=== PATIENT | male | born 1955 | race Caucasian/White ===

== ENCOUNTER → 2017-12-20 | Outpatient (CLI) | payer BC, MEDICARE ==
[~2017-12-20] MED LIST: ASPI81CH; ATOR40TA PO; ATORVASTATIN CA40 MG PO; Amaryl1 MG PO; CLOP75 PO; DOCCAL240; FENT25TP TOP; FURO40 PO; Fentanyl1 EAC1 TD; Flomax0.4 MG PO; METO25 PO; MSM1000 M1 PO; Metformin HCl1000 MG PO; Multiple Vitam1 EAC1 PO; NAMENDA XR1 EACH PO; POTCIT10; Percocet 5-3251 EACH PO; SENNA LAXATIVE PO; Zofran8 MG PO
[2017-12-20 11:35] LABS: Protein, Urine Quantitative 202.9 mg/dL (0.0-11.9)
== END | disposition home or self-care (01) ==
LOC: LAB FUT 12-17 14:15 → LAB SHORT 05:30 → OLS 05:30
PROVIDERS: Internal Medicine Nephrology
DX: N18.4 Chronic kidney disease, stage 4 (severe) (principal); D63.1 Anemia in chronic kidney disease
CPT/HCPCS: 81050; 82043; 84156

== ENCOUNTER → 2018-02-11 | Outpatient (CLI) | payer BC, MEDICARE ==
[2018-02-11 14:31] LABS: Protein, Urine Quantitative 257.4 mg/dL (0.0-11.9)
== END ==
LOC: OLS 11:47 → LAB SHORT 11:47
PROVIDERS: Internal Medicine Nephrology
DX: N18.3 Chronic kidney disease, stage 3 (moderate) (principal); R80.9 Proteinuria, unspecified; N25.81 Secondary hyperparathyroidism of renal origin; E55.9 Vitamin D deficiency, unspecified; E78.00 Pure hypercholesterolemia, unspecified; R76.9 Abnormal immunological finding in serum, unspecified; R94.5 Abnormal results of liver function studies; R94.6 Abnormal results of thyroid function studies; G60.9 Hereditary and idiopathic neuropathy, unspecified
CPT/HCPCS: 81050; 82043; 84156

== ENCOUNTER 2019-05-31 07:43 | Inpatient (IN) | payer BC, MEDICARE ==
[~2019-05-31] VITALS: Ht 170.2 cm; Wt 98.4 kg
[~2019-05-31 07:43] MED LIST changes: +CHOL10002 PO; +Coq-10100 MG PO; +EXELON1 EACH TD; +FENO48 PO; +FISH OIL 1,4001 EACH PO; +IRON150C PO; +NAMENDA XR28 MG PO; +POTA8 PO; -POTCIT10; +Prinivil5 MG PO; +TRADJENTA5 MG PO
[2019-05-31 09:45] LABS: Calcium, Ionized (POC) 1.07 mmol/L (1.10-1.46); Chloride (POC) 114 mmol/L (98-108); Creatinine (POC) 4.8 mg/dL (0.8-1.3); Glucose (ISTAT POC) 116 mg/dL (70-99); Hemoglobin (POC) 10.5 g/dL (13.5-17.5); Potassium (POC) 5.3 mmol/L (3.5-5.5); Sodium (POC) 140 mmol/L (135-148); Total CO2 (POC) 18 mmol/L (21-32)
[2019-05-31 11:48] LABS: BASOPHILS ABSOLUTE AUTO 0.03 K/mm3 (0.00-0.23); BASOPHILS PERCENT AUTO 1 % (0-2); EOSINOPHILS ABSOLUTE AUTO 0.17 K/mm3 (0.00-0.68); EOSINOPHILS PERCENT AUTO 3 % (0-6); Hematocrit 31.7 % (37.0-53.0); Hemoglobin 10.5 g/dL (13.5-17.5); IMMATURE GRAN ABSOLUTE AUTO 0.05 K/mm3 (0.00-0.10); IMMATURE GRAN PERCENT AUTO 1 % (0-1); LYMPHOCYTES ABSOLUTE AUTO 1.55 K/mm3 (0.84-5.20); LYMPHOCYTES PERCENT AUTO 24 % (21-46); MONOCYTES ABSOLUTE AUTO 0.64 K/mm3 (0.16-1.47); MONOCYTES PERCENT AUTO 10 % (4-13); Mean Corpuscular HGB 32.2 pg (26.0-34.0); Mean Corpuscular HGB Conc 33.1 g/dL (31.5-36.5); Mean Corpuscular Volume 97 fL (80-100); Mean Platelet Volume 9.8 fL (9.1-12.4); NEUTROPHILS ABSOLUTE AUTO 4.06 K/mm3 (1.96-9.15); NEUTROPHILS PERCENT AUTO 63 % (41-73); Platelet Count 225 K/mm3 (150-400); RDW Coefficient Variation 12.3 % (11.7-14.2); RDW Standard Deviation 43.9 fL (35.1-46.3); Red Blood Cell Count 3.26 M/mm3 (4.30-5.90)
[2019-05-31 12:04] LABS: Albumin, Blood 3.4 g/dL (3.4-5.0); Anion Gap 9 mmol/L (6-16); Blood Urea Nitrogen 84 mg/dL (8-24); Bun/Creatinine Ratio 20.5 (12.0-20.0); CO2, Blood 19 mmol/L (21-32); Calcium, Blood 7.7 mg/dL (8.5-10.1); Chloride, Blood 115 mmol/L (98-108); Creatinine, Blood 4.09 mg/dL (0.60-1.20); Glomerular Filtration Rate 16 (60-); Glucose, Blood 116 mg/dL (70-99); Phosphorus, Blood 4.2 mg/dL (2.5-4.9); Potassium, Blood 5.6 mmol/L (3.5-5.5); Sodium, Blood 143 mmol/L (136-145)
[2019-05-31] MEDS ORDERED: SODBIC650 PO (13:01)
[2019-05-31 13:18] LABS: Phosphorus, Blood 4.3 mg/dL (2.5-4.9)
--- NOTE | 2019-05-31 17:43 | NUR ---
SHIFT SUMMARY: PT ARRIVED FROM THE ER THIS AFTERNOON WITH AND DAUGHTER AT BEDSIDE. HE AMBULATED FROM STRETCHER TO BED WITH STAND BY ASSIST. PT IS A/O X 4 AND ANSWERS QUESTIONS APPROPRIATELY BUT THE FAMILY IS ASKING TO BE INVOLVED IN ALL CARE DECISIONS PT HAS BEEN DX WITH [facility]. HOSPITALIST WAS NOTIFIED OF THIS REQUEST. POWER GLIDE WAS PLACED BY RESOURCE NURSE IN [facility]. PT WAS ASSISTED TO TAKE A SHOWER AT HIS REQUEST. THIS NURSE SPOKE WITH DR CALLE ABOUT THE TIME FOR THE PERMACATH PLACEMENT TOMORROW AND WAS UPDATED ON DR BURKETT BEING RESPIRATORY EQUIPMENT ASSISTANT TOMORROW, DR CALLE PLACED THE PT ON NPO DIET OF MIDNIGHT TONIGHT SO THE PROCEDURE CAN BE COMPLETED TOMORROW. DR ABDUL HAS ALSO BEEN CONSULTED FOR RENAL ISSUES. PT IS RESTING IN BED AND VERBALIZES AN UNDERSTANDING OF THE USE OF HIS CALL LIGHT.
--- NOTE | 2019-06-01 02:00 | NUR ---
RAMESH THE [employer]IV[employer] SYSTEM MAINTAINER ASSESSED PT'S FISTULA SITE. SHE STATED FISTULA APPEARS TO BE IN GOOD CONDITION AND RECOMMENDED THAT PT'S ACCESS TO PT'S FISTULA BE ATTEMPTED AGAIN IN AM.
[2019-06-01 04:12] LABS: BASOPHILS ABSOLUTE AUTO 0.03 K/mm3 (0.00-0.23); BASOPHILS PERCENT AUTO 1 % (0-2); EOSINOPHILS ABSOLUTE AUTO 0.21 K/mm3 (0.00-0.68); EOSINOPHILS PERCENT AUTO 4 % (0-6); Hematocrit 28.6 % (37.0-53.0); Hemoglobin 9.6 g/dL (13.5-17.5); IMMATURE GRAN ABSOLUTE AUTO 0.03 K/mm3 (0.00-0.10); IMMATURE GRAN PERCENT AUTO 1 % (0-1); LYMPHOCYTES ABSOLUTE AUTO 1.82 K/mm3 (0.84-5.20); LYMPHOCYTES PERCENT AUTO 30 % (21-46); MONOCYTES PERCENT AUTO 10 % (4-13); Mean Corpuscular HGB 33.2 pg (26.0-34.0); Mean Corpuscular HGB Conc 33.6 g/dL (31.5-36.5); Mean Corpuscular Volume 99 fL (80-100); Mean Platelet Volume 9.7 fL (9.1-12.4); NEUTROPHILS PERCENT AUTO 55 % (41-73); Platelet Count 211 K/mm3 (150-400); RDW Coefficient Variation 12.3 % (11.7-14.2); RDW Standard Deviation 44.8 fL (35.1-46.3); Red Blood Cell Count 2.89 M/mm3 (4.30-5.90); White Blood Cell Count 5.99 K/mm3 (4.00-11.30)
[2019-06-01 04:28] LABS: Albumin, Blood 3.1 g/dL (3.4-5.0); Anion Gap 8 mmol/L (6-16); Blood Urea Nitrogen 79 mg/dL (8-24); Bun/Creatinine Ratio 19.7 (12.0-20.0); CO2, Blood 21 mmol/L (21-32); Calcium, Blood 7.6 mg/dL (8.5-10.1); Chloride, Blood 115 mmol/L (98-108); Creatinine, Blood 4.01 mg/dL (0.60-1.20); Glomerular Filtration Rate 16 (60-); Glucose, Blood 108 mg/dL (70-99); Phosphorus, Blood 4.6 mg/dL (2.5-4.9); Potassium, Blood 5.1 mmol/L (3.5-5.5); Sodium, Blood 144 mmol/L (136-145)
--- NOTE | 2019-06-01 04:56 | NUR ---
SHIFT SUMMARY PT HAD NO COMPLAINTS OR ISSUES NOTED THIS SHIFT PT HAS SLEPT WELL T/O SHIFT WITH HIS CPAP. PT IS CURRENTLY SLEEPING IN NO DISTRESS. CALL LIGHT IN REACH.
--- NOTE | 2019-06-01 08:38 | NUR ---
pt is scheduled to have a permacath placed this morning and has been NPO since midnight. per dr Fine morning meds will be held until after the procedure.
--- NOTE | 2019-06-01 14:20 | NUR ---
PT WAS TRANSPORTED TO RECEIVE HIS PERMACATH, AND DAUGHTER ACCOMPANIED HIM.
--- NOTE | 2019-06-01 17:17 | NUR ---
SHIFT SUMMARY: PT WAS A/O X 4 THIS SHIFT WITH NO C/O PAIN. PT WAS TRANSPORTED FOR PERMACATH PLACEMENT AND RETURNED WITH A PERMACATH TO [facility]. DR ABDUL WAS NOTIFIED AND STATED PT WAS OK TO BE DIALYZED TODAY OT TOMORROW. DIALYSIS NURSE WAS NOTIFIED AND SAID THE PT WOULD BE ON THE SCHEDULE FOR TOMORROW MORNING AND PT AND FAMILY WERE NOTIFIED OF THIS. PT IS RESTING IN BED WITH HOB ELEVATED PER DR DORSEY. PT IS NOW ABLE TO EAT AND TRAY WAS ORDERED AND DAILY MEDS GIVEN PER DR CALLE. FAMILY REMAINS AT BEDSIDE WITH PT AND THEY CALL FOR HELP WHEN NEEDED.
--- NOTE | 2019-06-01 20:02 | NUR ---
Patients surgical site from permacath placement found to be bleeding excesively. All bloody dressings were removed and pressure was applied at incision site with sterile guaze until bleeding had stopped, approximately 10 minutes. Steri strips were reapplied over incisiom along with sterile guaze and draped with a clear tegaderm and compression tape was then applied. No other bleed has been noted since dressing was changed. Will continue to monitor for changes.
--- NOTE | 2019-06-02 04:29 | NUR ---
SHIFT SUMMARY PT HAD SOME ISSUE RELATED TO CONTINUED BLEEDING AT [facility] SITE. DR BUSTAMANTE CALLED AND HE INSTRUCTED ON BEST COUSE TO CONTROL BLEEDING. PT BLEEDING CONTROLLED AND NO OTHER ISSUES NOTED AT SITE. PT HAD INCREASED DISCOMFORT AND ADDITIONAL PAIN MED WAS ORDERED BY DR DIAL. PT HAS SLEPT WELL WITH CPAP T/O NIGHT. PT CURRENTLY SLEEPING AND BREATHING EASY. CALL LIGHT IN REACH.
[2019-06-02 04:52] LABS: Hematocrit 28.7 % (37.0-53.0); Hemoglobin 9.5 g/dL (13.5-17.5); Mean Corpuscular HGB 32.9 pg (26.0-34.0); Mean Corpuscular HGB Conc 33.1 g/dL (31.5-36.5); Mean Corpuscular Volume 99 fL (80-100); Mean Platelet Volume 10.1 fL (9.1-12.4); Platelet Count 210 K/mm3 (150-400); RDW Coefficient Variation 12.3 % (11.7-14.2); RDW Standard Deviation 45.1 fL (35.1-46.3); Red Blood Cell Count 2.89 M/mm3 (4.30-5.90); White Blood Cell Count 5.98 K/mm3 (4.00-11.30)
[2019-06-02 05:12] LABS: Albumin, Blood 3.1 g/dL (3.4-5.0); Anion Gap 10 mmol/L (6-16); Blood Urea Nitrogen 75 mg/dL (8-24); Bun/Creatinine Ratio 18.9 (12.0-20.0); CO2, Blood 18 mmol/L (21-32); Calcium, Blood 7.8 mg/dL (8.5-10.1); Chloride, Blood 116 mmol/L (98-108); Creatinine, Blood 3.96 mg/dL (0.60-1.20); Glomerular Filtration Rate 16 (60-); Glucose, Blood 87 mg/dL (70-99); Magnesium, Blood 1.9 mg/dL (1.6-2.4); Phosphorus, Blood 4.2 mg/dL (2.5-4.9); Potassium, Blood 5.1 mmol/L (3.5-5.5); Sodium, Blood 144 mmol/L (136-145)
--- NOTE | 2019-06-02 06:29 | NUR ---
PER DR ABDUL PT NEEDS TO MAKE A OUTPATIENT DIALYSIS APPOINTMENT. GOAL IS TO AVOID HAVING TO GO THROUGH ER FOR DIALYSIS.
--- NOTE | 2019-06-02 10:21 | NUR ---
PT TRANSFERED TO DIALYSSIS AT THIS TIME, THE PT IS A/OX3, APPEARS TO BE BREATHING EASILY ON RA, FAMILY IS WITH THE PT
[2019-06-02] MEDS ORDERED: ACET325 PO (11:35)
[2019-06-02] MEDS ORDERED: MELA3 PO (11:36)
[2019-06-02] MEDS ORDERED: ONDA4ODT MM (11:38)
--- NOTE | 2019-06-02 13:54 | NUR ---
PT DISCHARGED THE PT CAME BACK FROM DIALYSIS, A/OX3, APPEARED TO BE BREATHING EASILY, THE PT VERBALIZED UNDERSTANDING OF THE DC INSTRUCTIONS, THE PTS PRESCIPTIONS WERE FAXED TO [facility] REQUESTED, FOLLOW UP APPOINTMENTS WITH AND DIALYSIS WERE MADE FOR THE PT AND ADDED TO THE DC INSTRUCTIONS, THE PT WAS TRANSFERED VIA WHEELCHAIR ACCOMPANIED BY VOLUNTEER AND FAMILY
[2019-06-03 05:08] LABS: HBSAG SCREEN Negative (Negative); HEP A AB, IGM Negative (Negative); HEP B CORE AB, IGM Negative (Negative); HEP C VIRUS AB <0.1 (0.0-0.9)
== END 2019-06-02 13:31 | disposition home or self-care (01) | DRG 314 ==
LOC: ER 07:43 → ERHOLD 10:54 → MEDS 10:54
PROVIDERS: Internal Medicine Nephrology; Physician Assistant; ADMIT Family Medicine
PROC: 0JH63XZ Insertion of Tunneled Vascular Access Device into Chest Subcutaneous Tissue and Fascia, Percutaneous Approach (ICD-10-PCS; principal; 2019-06-01)
PROC: 02HV33Z Insertion of Infusion Device into Superior Vena Cava, Percutaneous Approach (ICD-10-PCS; 2019-06-01)
PROC: B5181ZA Fluoroscopy of Superior Vena Cava using Low Osmolar Contrast, Guidance (ICD-10-PCS; 2019-06-01)
DX: T82.590A Other mechanical complication of surgically created arteriovenous fistula, initial encounter (principal); N18.6 End stage renal disease; N25.81 Secondary hyperparathyroidism of renal origin; N17.9 Acute kidney failure, unspecified; E87.2 Acidosis; Z79.82 Long term (current) use of aspirin; E78.5 Hyperlipidemia, unspecified; G47.33 Obstructive sleep apnea (adult) (pediatric); E11.22 Type 2 diabetes mellitus with diabetic chronic kidney disease; Z79.02 Long term (current) use of antithrombotics/antiplatelets; E83.51 Hypocalcemia; Z99.2 Dependence on renal dialysis; E11.21 Type 2 diabetes mellitus with diabetic nephropathy; E87.70 Fluid overload, unspecified; D63.1 Anemia in chronic kidney disease; I25.10 Atherosclerotic heart disease of native coronary artery without angina pectoris; Z95.5 Presence of coronary angioplasty implant and graft
CPT/HCPCS: 36415; 36558; 76937; 80047; 80069; 80074; 82947; 83036; 83735; 84100; 85014; 85018; 85025; 85027; 86317; 93005; 93010; 93931; 94762; 99152; 99153; 99285-25; A9270; C1750; C1751; C1769; J1644; J2250; J3010; J7040

== ENCOUNTER → 2020-04-26 | Outpatient (CLI) | payer BC, MEDICARE ==
[~2020-04-26] MED LIST changes: +ACET325 PO; +MELA3 PO; +ONDA4ODT MM; +SODBIC650 PO
== END | disposition home or self-care (01) ==
LOC: LAB SHORT 13:04 → LAB 13:04
DX: N18.6 End stage renal disease (principal)

== ENCOUNTER 2020-06-10 06:25 | Observation (INO) | payer BC, MEDICARE ==
[~2020-06-10] VITALS: Ht 170.2 cm; Wt 100.8 kg
--- NOTE | 2020-06-10 09:45 | NUR ---
PT WAS HAVING ECHO AND WAS FOUND TO BE IN 2 DEGREE AND 3 DEGREE HB 35-50'S; BROUGHT BACK TO RECOVERY ROOM AND AWAITING ICU BED. PT IS ALERT AND ORIENTED, ASYMPTOMATIC WITH RHYTHM. PT DENIES CHEST PAIN/PRESSURE, SOB, NAUSEA, LIGHTHEADED OR DIZZINESS. MONITOR 2 DEGREE HB TYPE II AND 3 DEGREE HB 35-50'S, B/P 156/69, AFEBRILE, SPO2 100% RA. 20 GA IV STARTED R AC ON 1ST ATTEMPT, PT TOLERATED WELL.
--- NOTE | 2020-06-10 10:05 | NUR ---
PT TRANSFERRED TO ICU 16 VIA [place]. PT GOING BETWEEN 2 DEGREE HB TYPE II AND 3 DEGREE HB 35-50'S-REMAINS ASYMPTOMATIC. REPORT GIVEN TO LUIS AGUERO RN; ALL QUESTIONS ANSWERED.
[2020-06-10 10:46] LABS: BASOPHILS ABSOLUTE AUTO 0.05 K/mm3 (0.00-0.23); BASOPHILS PERCENT AUTO 1 % (0-2); EOSINOPHILS PERCENT AUTO 4 % (0-6); Hemoglobin 10.9 g/dL (13.5-17.5); IMMATURE GRAN PERCENT AUTO 1 % (0-1); LYMPHOCYTES ABSOLUTE AUTO 2.12 K/mm3 (0.84-5.20); LYMPHOCYTES PERCENT AUTO 28 % (21-46); MONOCYTES ABSOLUTE AUTO 0.67 K/mm3 (0.16-1.47); MONOCYTES PERCENT AUTO 9 % (4-13); Mean Corpuscular HGB 33.4 pg (26.0-34.0); Mean Corpuscular HGB Conc 34.1 g/dL (31.5-36.5); Mean Corpuscular Volume 98 fL (80-100); Mean Platelet Volume 9.7 fL (9.1-12.4); NEUTROPHILS ABSOLUTE AUTO 4.36 K/mm3 (1.96-9.15); NEUTROPHILS PERCENT AUTO 57 % (41-73); Platelet Count 232 K/mm3 (150-400); RDW Coefficient Variation 12.4 % (11.7-14.2); RDW Standard Deviation 44.4 fL (35.1-46.3); Red Blood Cell Count 3.26 M/mm3 (4.30-5.90)
[2020-06-10] MEDS ORDERED: CALCIUM ACETAT667 MG PO (11:03)
[2020-06-10] MEDS ORDERED: Calcium Acetat667 MG PO (11:04)
[2020-06-10] MEDS ORDERED: MIDO5 (11:05)
[2020-06-10 11:06] LABS: Albumin, Blood 3.5 g/dL (3.4-5.0); Bilirubin, Total 0.4 mg/dL (0.1-1.0); Bun/Creatinine Ratio 11.7 (12.0-20.0); Calcium, Blood 9.3 mg/dL (8.5-10.1); Creatinine, Blood 6.82 mg/dL (0.60-1.20); Globulin, Blood 3.4 g/dL (2.2-4.0); International Normalized Ratio 1.04; Potassium, Blood 4.4 mmol/L (3.5-5.5); Prothrombin Time Results 11.1 Sec (9.7-11.5); Total Protein, Blood 6.9 g/dL (6.4-8.2)
[2020-06-10] MEDS ORDERED: CO Q10100 MG PO (11:06)
[2020-06-10] MEDS ORDERED: DUOFER 28 MG TA28 MG PO (11:08)
[2020-06-10] MEDS ORDERED: Ginseng250 MG PO (11:08)
[2020-06-10] MEDS ORDERED: DOC250 PO (11:11)
--- NOTE | 2020-06-10 11:56 | NUR ---
1015-RECEIVED THIS PATIENT FROM THE [facility]. CAME ORIGINALLY FOR AN ECHO AND WAS DISCOVERED THAT PT IS ON MOBITZ TYPE II BLOCK. PT IS AFERBILE. DENIES PAIN. PT HAS A PERETONEAL DIALYSIS CATHETER AND AV FISTULA TO HIS SABA. PT STATED HE DOES PD AT HOME EVERY EVENING AND HD ON OCCASSION WHEN PD FAILS. PT DENIES OF SHORTNESS OF BREATH, DIZZINESS, OR FAINTING. 1158-PACER PADS PLACED ORDERED. AWAITING FOR PACEMAKER PLACEMENT.
--- NOTE | 2020-06-10 14:06 | NUR ---
1230-DR. WICK WAS NOTIFIED REGARDING PT'S ELEVATED BLOOD PRESSURE. SHE STATED TO CONTINUE MONITORING AND CALL AFTER AN HOUR. 1405-DR. WICK WAS NOTIFIED AGAIN REGARDING PT'S STILL ELEVATED BLOOD PRESSURE. ORDERS RECEIVED.
--- NOTE | 2020-06-10 14:41 | NUR ---
PT WAS TAKEN TO THE STUDENT TRUCK DRIVER AT THIS TIME.
--- NOTE | 2020-06-10 16:50 | NUR ---
PT CAME BACK FROM THE PATENT ENGINEER. PT HAD A DUAL CHAMBER PACEMAKER PLACED TO HIS LEFT UPPER CHEST. NO BLEEDING NOTED. ARM SLING PLACED ORDERED. DENIES PAIN AT THIS TIME. AFEBRILE. NO BLEEDING NOTED. INSTRUCTED PATIENT ON PRECAUTIONERY MEASURES POST PACEMAKER PLACEMENT. PT IS ALERT AND ORIENTED.
--- NOTE | 2020-06-10 18:25 | NUR ---
POST DUAL CHAMBER PACEMAKER PLACEMENT. PT IS AFEBRILE. DENIES PAIN AT THIS TIME. NO BLEEDING NOTED TO PACER SITE.
--- NOTE | 2020-06-10 20:00 | NUR ---
ASSUMED CARE OF PT AT 1915. REPORT RECEIVED AT BEDSIDE. PT PRESENTS IN BED. ALERT AND ORIENTED. PLEASANT AND COOPERATIVE WITH CARE AND ASSESSMENT. PT HAS LEFT ARM IN SLING. PRESSURE DRESSING OVER PACER SITE UPPER LEFT CHEST. TEACHING REINFORCE CONCERNING RESTRICTION S/P PACER. OCCASSIONAL PVC NOTED WITHIN PACED RHYTHM. OCCASSIONAL ATRIAL PACE. NO COMPLAINTS VOICED BY PT.
--- NOTE | 2020-06-10 20:02 | NUR ---
PATIENT AWAKE, ALERT AND ORIENTED. SOME SORENESS REPORTED AT LEFT CHEST DUE TO PACEMAKER PLACEMENT TODAY. OVERNIGHT CCPD SET UP PRIMED AND PROGRAMMED PER DR ABDUL'S ORDER. PATEINT AESEPTICALLY COMNNECTED WHEN PRIME COMPLETE. PATIENT DRY SOR ID BYPASS REQUIRED. FILL #1 TOLERATED WITHOUT COMPLAINT. EXIT SITE CARE DONE AND NEW STERILE DRESSSING APPLIED WITH 2 STRAIN RELIEFS. ICU STAFF AWARE OF OVERNIGHT THERAPY IN PROGRESS.
--- NOTE | 2020-06-11 01:00 | NUR ---
HAVE MEDICATED PT WITH ONE NORCO 5/325 FOR PACER SITE DISCOMFORT. PT STATES THAT PAIN IS ONLY WITH MOVEMENT. NO FURTHER COMPLAINTS. PT IN PROCESS OF PERITONEAL DIALYSIS. PT TOLERATING THIS VERY WELL. WILL CONTINUE TO MONITOR.
[2020-06-11 03:26] LABS: BASOPHILS ABSOLUTE AUTO 0.04 K/mm3 (0.00-0.23); BASOPHILS PERCENT AUTO 1 % (0-2); EOSINOPHILS ABSOLUTE AUTO 0.26 K/mm3 (0.00-0.68); EOSINOPHILS PERCENT AUTO 3 % (0-6); Hematocrit 28.5 % (37.0-53.0); Hemoglobin 9.8 g/dL (13.5-17.5); IMMATURE GRAN ABSOLUTE AUTO 0.05 K/mm3 (0.00-0.10); IMMATURE GRAN PERCENT AUTO 1 % (0-1); LYMPHOCYTES ABSOLUTE AUTO 1.85 K/mm3 (0.84-5.20); LYMPHOCYTES PERCENT AUTO 23 % (21-46); MONOCYTES ABSOLUTE AUTO 0.73 K/mm3 (0.16-1.47); MONOCYTES PERCENT AUTO 9 % (4-13); Mean Corpuscular HGB 33.7 pg (26.0-34.0); Mean Corpuscular HGB Conc 34.4 g/dL (31.5-36.5); Mean Corpuscular Volume 98 fL (80-100); Mean Platelet Volume 9.9 fL (9.1-12.4); NEUTROPHILS ABSOLUTE AUTO 5.02 K/mm3 (1.96-9.15); NEUTROPHILS PERCENT AUTO 63 % (41-73); Platelet Count 215 K/mm3 (150-400); RDW Coefficient Variation 12.5 % (11.7-14.2); RDW Standard Deviation 44.8 fL (35.1-46.3); Red Blood Cell Count 2.91 M/mm3 (4.30-5.90); White Blood Cell Count 7.95 K/mm3 (4.00-11.30)
[2020-06-11 03:43] LABS: Anion Gap 9 mmol/L (6-16); Blood Urea Nitrogen 76 mg/dL (8-24); Bun/Creatinine Ratio 11.5 (12.0-20.0); CO2, Blood 26 mmol/L (21-32); Calcium, Blood 8.5 mg/dL (8.5-10.1); Chloride, Blood 106 mmol/L (98-108); Creatinine, Blood 6.59 mg/dL (0.60-1.20); Glomerular Filtration Rate 9 (60-); Glucose, Blood 252 mg/dL (70-99); Magnesium, Blood 2.1 mg/dL (1.6-2.4); Phosphorus, Blood 4.3 mg/dL (2.5-4.9); Potassium, Blood 3.8 mmol/L (3.5-5.5); Sodium, Blood 141 mmol/L (136-145)
--- NOTE | 2020-06-11 06:35 | NUR ---
PT HAS BEEN ABLE TO REST THROUGH THE NIGHT WITHOUT COMPLAINTS. DID MEDICATE ONCE NEAR MIDNIGHT FOR SITE PAIN FROM PACER PLACEMENT. PT ABLE TO REST. TEACHING DONE ON PRECAUTIONS CONCERNING NEW PACER PLACEMENT. COMPLIANT WITH KEEPING LEFT ARM IN SLING. PT VOICES UNDERSTANDING WITH TEACHING. AM EKG REVEALS GOOD PACING. WILL CONTINUE TO MONITOR PT, AND WILL REPORT OFF TO ONCOMING RN.
--- NOTE | 2020-06-11 09:22 | NUR ---
CARE ASSUMED ASSESSMENT COMPLETED, PT ALERT AND ORIENTED, FORGETFUL AT TIMES, APPROPRIATE AND COOPERATIVE. VSS, HR 70'S-80'S PACED WITH OCCASIONAL PVC'S. PT DENIES CP/PRESSURE, PALPITATIONS, DIZZINESS, SOB, NAUSEA. REPORTS L CHEST SORENESS WITH PALPATION, NO OTHER C/O PAIN. LUE IN SLING PER POST PACER PRECAUTIONS. AT BEDSIDE, PT ATE BREAKFAST AND TOOK PO MEDS WITHOUT DIFFICULTY. ANCEF INFUSING PER ORDERS. DR. DENIS IN TO ASSESS, PACER DRESSING CHANGED, SITE WNL, STERI STRIPS INTACT. DR. WICK IN TO ASSESS AND WRITE DC ORDERS. PT TO XRAY.
[2020-06-11] MEDS ORDERED: HYDR1TAB94 PO (10:11)
--- NOTE | 2020-06-11 11:11 | NUR ---
DIALYSIS-PD PT AWAKE AND ALERT. WITH HIM. DC'D PT FROM PD MACHINE PER PROTOCAL. ID [id number] ML, UF [id number] ML. SITE CLEAR. FLUID CLEAR.
--- NOTE | 2020-06-11 11:13 | NUR ---
DISCHARGE DR. WICK HAS REVIEWED CXR RESULTS, STATES OK FOR DC. PT GIVEN DISCHARGE AND F/U INSTRUCTIONS, PT AND VERBALIZE UNDERSTANDING. IV DC'D WITH TIP INTACT, PRESSURE DRESSING APPLIED. PT ASSISTED TO DRESS BY , SLING REMAINS ON L ARM, DRESSING TO L CHEST WALL CDI. PT DC AT 1055 WITH WITH DC AND F/U INSTRUCTIONS, PACER INFO, WRITTEN RX, AND BELONGINGS. VSS, ASSISTED TO CAR VIA WC BY STAFF, GAIT STEADY FOR TRANSFERS. PT DC'D WITHOUT C/O.
== END 2020-06-11 10:55 | disposition home or self-care (01) ==
LOC: ECHO 06:25 → ICUW 09:05
PROVIDERS: Internal Medicine Nephrology; ADMIT Internal Medicine Cardiovascular Disease
DX: I44.1 Atrioventricular block, second degree (principal); I25.2 Old myocardial infarction; I25.10 Atherosclerotic heart disease of native coronary artery without angina pectoris; E78.5 Hyperlipidemia, unspecified; G47.33 Obstructive sleep apnea (adult) (pediatric); G30.9 Alzheimer's disease, unspecified; F02.80 Dementia in other diseases classified elsewhere, unspecified severity, without behavioral disturbance, psychotic disturbance, mood disturbance, and anxiety; E66.9 Obesity, unspecified; E11.22 Type 2 diabetes mellitus with diabetic chronic kidney disease; I12.0 Hypertensive chronic kidney disease with stage 5 chronic kidney disease or end stage renal disease; N18.6 End stage renal disease; Z99.2 Dependence on renal dialysis; Z20.828 Contact with and (suspected) exposure to other viral communicable diseases; Z95.5 Presence of coronary angioplasty implant and graft; Z88.8 Allergy status to other drugs, medicaments and biological substances; Z79.82 Long term (current) use of aspirin; Z79.899 Other long term (current) drug therapy; D63.1 Anemia in chronic kidney disease
CPT/HCPCS: 33208; 36415; 71045; 71046; 76937; 80053; 80069; 82947; 83520; 83735; 84443; 84484; 85025; 85610; 85730; 93005; 93010; 93306; 96365; 96376; 99152; 99153; A9270-GY; C1785; C1894; C1898; G0257; G0378; J0690; J1644; J2250; J3010; J7040; U0002

== ENCOUNTER 2021-05-23 14:16 | Inpatient (IN) | payer BC, MEDICARE ==
[~2021-05-23] VITALS: Ht 170.2 cm; Wt 83.9 kg
[~2021-05-23 14:16] MED LIST changes: -ASPI81CH; +Aspir 8181 MG PO; +CALCIUM ACETAT667 MG PO; -CHOL10002 PO; +CO Q10100 MG PO; +Calcium Acetat667 MG PO; +DOC250 PO; +DUOFER 28 MG TA28 MG PO; +Ginseng250 MG PO; +HYDR1TAB94 PO; +MIDO5 PO; +VITAMIN D31000 UNI1 PO
[2021-05-23] MEDS ORDERED: MIDODRINE HCL10 M4 PO (14:20)
[2021-05-23] MEDS ORDERED: BASAGLAR K100 UNIT/3 SC (14:22)
[2021-05-23] MEDS ORDERED: FENOFIBRATE48 MG PO (14:22)
[2021-05-23] MEDS ORDERED: FURO80 PO (14:22)
[2021-05-23] MEDS ORDERED: MEMANTINE HCL E28 MG PO (14:22)
[2021-05-23] MEDS ORDERED: ATOR40TA PO (14:23)
[2021-05-23 15:28] LABS: BASOPHILS ABSOLUTE AUTO 0.05 K/mm3 (0.00-0.23); BASOPHILS PERCENT AUTO 1 % (0-2); EOSINOPHILS ABSOLUTE AUTO 0.06 K/mm3 (0.00-0.68); EOSINOPHILS PERCENT AUTO 1 % (0-6); Hematocrit 35.9 % (37.0-53.0); Hemoglobin 11.8 g/dL (13.5-17.5); IMMATURE GRAN ABSOLUTE AUTO 0.44 K/mm3 (0.00-0.10); IMMATURE GRAN PERCENT AUTO 5 % (0-1); LYMPHOCYTES ABSOLUTE AUTO 0.58 K/mm3 (0.84-5.20); LYMPHOCYTES PERCENT AUTO 6 % (21-46); MONOCYTES PERCENT AUTO 4 % (4-13); Mean Corpuscular HGB 32.1 pg (26.0-34.0); Mean Corpuscular HGB Conc 32.9 g/dL (31.5-36.5); Mean Corpuscular Volume 98 fL (80-100); Mean Platelet Volume 10.2 fL (9.1-12.4); NEUTROPHILS ABSOLUTE AUTO 7.68 K/mm3 (1.96-9.15); NEUTROPHILS PERCENT AUTO 83 % (41-73); NRBC ABSOLUTE 0.03 K/mm3 (0.00-0.02); NRBC Auto 0.3 /100 WBC (0.0-0.2); Platelet Count 441 K/mm3 (150-400); RDW Coefficient Variation 12.2 % (11.7-14.2); Red Blood Cell Count 3.68 M/mm3 (4.30-5.90); White Blood Cell Count 9.21 K/mm3 (4.00-11.30)
[2021-05-23 15:51] LABS: Albumin, Blood 2.3 g/dL (3.4-5.0); Albumin/Globulin Ratio 0.4 (0.8-1.8); Bilirubin, Total 0.5 mg/dL (0.1-1.0); Bun/Creatinine Ratio 11.7 (12.0-20.0); Calcium, Blood 7.4 mg/dL (8.5-10.1); Creatinine, Blood 9.01 mg/dL (0.60-1.20); Globulin, Blood 5.5 g/dL (2.2-4.0); Potassium, Blood 3.9 mmol/L (3.5-5.5); Total Protein, Blood 7.8 g/dL (6.4-8.2)
[2021-05-23 21:33] LABS: Glucose, Blood 526 mg/dL (70-99)
--- NOTE | 2021-05-24 02:45 | NUR ---
DIALYSIS-PD CALLED AT 0013 TO CONNECT PT TO PD. PT SITTING UP IN BED, VERY CONFUSED. I ASKED HIM TO HELP PULL HIS PD CATH OUT OF HIS SWEAT PANTS. HE TUCKED IT IN FURTHER. SETUP HIS MACHINE AND TOOK IT UPSTAIRS TO HIS ROOM. UNABLE TO GET IT TO PRIME PROBABLY. TRIED 3 X. EXCHANGED THE TUBING FOR NEW TUBING. PROBLEM SOLVED. CONNECTED THE PT TO THE TX AT 0230. HE IMMEDIATELY DECIDED HE NEEDED TO GO TO THE BR. INSTRUCTED FINE ARTS MODEL TO WATCH HIS TUBING. USED DIANEAL 1.5 % DEXTROSE, PT RUNNING VERY HIGH BLOOD SUGARS. 4 EXCHANGES @ 2200ML, LAST FILL 100 ML. 9.5 HRS AT 1:54 HR DWELLS. DRESSING CHANGED PER PROTOCAL SITE CLEAR.
[2021-05-24 05:35] LABS: Hematocrit 35.6 % (37.0-53.0); Hemoglobin 11.9 g/dL (13.5-17.5); Mean Corpuscular HGB 32.3 pg (26.0-34.0); Mean Corpuscular HGB Conc 33.4 g/dL (31.5-36.5); Mean Corpuscular Volume 97 fL (80-100); Mean Platelet Volume 9.8 fL (9.1-12.4); NRBC ABSOLUTE 0.05 K/mm3 (0.00-0.02); NRBC Auto 0.4 /100 WBC (0.0-0.2); Platelet Count 338 K/mm3 (150-400); RDW Coefficient Variation 12.1 % (11.7-14.2); RDW Standard Deviation 43.5 fL (35.1-46.3); Red Blood Cell Count 3.68 M/mm3 (4.30-5.90); White Blood Cell Count 11.79 K/mm3 (4.00-11.30)
[2021-05-24 06:00] LABS: Magnesium, Blood 2.2 mg/dL (1.6-2.4)
[2021-05-24 06:04] LABS: Albumin, Blood 2.3 g/dL (3.4-5.0); Albumin/Globulin Ratio 0.5 (0.8-1.8); Bilirubin, Total 0.5 mg/dL (0.1-1.0); Calcium, Blood 6.7 mg/dL (8.5-10.1); Globulin, Blood 5.1 g/dL (2.2-4.0); Phosphorus, Blood 3.7 mg/dL (2.5-4.9); Potassium, Blood 2.9 mmol/L (3.5-5.5); Total Protein, Blood 7.4 g/dL (6.4-8.2)
[2021-05-24 06:05] LABS: Creatinine, Blood 8.86 mg/dL (0.60-1.20)
[2021-05-24 06:16] LABS: BAND PERCENT MAN 2 % (0-8); BASOPHILS PERCENT MAN 0 % (0-2); EOSINOPHILS ABSOLUTE MAN 0.47 K/mm3 (0.00-0.68); EOSINOPHILS PERCENT MAN 4 % (0-6); LYMPHOCYTES ABSOLUTE MAN 0.47 K/mm3 (0.84-5.20); LYMPHOCYTES PERCENT MAN 4 % (21-46); MONOCYTES ABSOLUTE MAN 0.58 K/mm3 (0.16-1.47); MONOCYTES PERCENT MAN 5 % (4-13); MYELOCYTE ABSOLUTE MAN 0.23 K/mm3 (0.00-0.00); MYELOCYTE PERCENT MAN 2 % (0-0); NEUTROPHILS ABSOLUTE MAN 10.02 K/mm3 (1.96-9.15); SEG NEUTROPHILS PERCENT MAN 83 % (41-73); TOTAL CELLS COUNTED 100
--- NOTE | 2021-05-24 16:21 | NUR ---
PATIENT TRANSFERED TO ROOM 406, REPORT GIVEN TO KAVITHA VEE.
--- NOTE | 2021-05-24 20:24 | NUR ---
PATIENT AWAKE // ALERT BUT CONFUSED. RESTING IN BED IN NO APPARENT DISTRESS. CYCLE SET UP, STRUNG, AND PRIMED PER DR ABDUL'S ORDER. PT AESEPTICALLY CONNECTED WHEN PRIME COMPLETE AND OVERNIGHT CCPD STARTED. EXIT SITE CARE DONE. SITE WNL. NEW STERILE DRESSING APPLIED WITH 3 STRAIN RELIEFS AND MEDFIX COVER FOR SECURITY. MED FLOOR STAFF AWARE OF OVERNIGHT THERAPY IN PROGRESS.
[2021-05-25 05:18] LABS: BASOPHILS ABSOLUTE AUTO 0.04 K/mm3 (0.00-0.23); BASOPHILS PERCENT AUTO 0 % (0-2); EOSINOPHILS PERCENT AUTO 0 % (0-6); Hematocrit 33.2 % (37.0-53.0); Hemoglobin 11.2 g/dL (13.5-17.5); IMMATURE GRAN ABSOLUTE AUTO 0.74 K/mm3 (0.00-0.10); IMMATURE GRAN PERCENT AUTO 6 % (0-1); LYMPHOCYTES ABSOLUTE AUTO 0.73 K/mm3 (0.84-5.20); LYMPHOCYTES PERCENT AUTO 6 % (21-46); MONOCYTES ABSOLUTE AUTO 0.36 K/mm3 (0.16-1.47); MONOCYTES PERCENT AUTO 3 % (4-13); Mean Corpuscular HGB 32.5 pg (26.0-34.0); Mean Corpuscular HGB Conc 33.7 g/dL (31.5-36.5); Mean Corpuscular Volume 96 fL (80-100); NEUTROPHILS ABSOLUTE AUTO 9.79 K/mm3 (1.96-9.15); NEUTROPHILS PERCENT AUTO 84 % (41-73); Platelet Count 325 K/mm3 (150-400); RDW Coefficient Variation 12.3 % (11.7-14.2); RDW Standard Deviation 42.9 fL (35.1-46.3); Red Blood Cell Count 3.45 M/mm3 (4.30-5.90); White Blood Cell Count 11.66 K/mm3 (4.00-11.30)
[2021-05-25 05:42] LABS: Albumin, Blood 2.3 g/dL (3.4-5.0); Anion Gap 14 mmol/L (6-16); Blood Urea Nitrogen 100 mg/dL (8-24); Bun/Creatinine Ratio 12.9 (12.0-20.0); CO2, Blood 24 mmol/L (21-32); Calcium, Blood 7.1 mg/dL (8.5-10.1); Chloride, Blood 96 mmol/L (98-108); Creatinine, Blood 7.77 mg/dL (0.60-1.20); Glomerular Filtration Rate 7 (60-); Glucose, Blood 531 mg/dL (70-99); Phosphorus, Blood 5.1 mg/dL (2.5-4.9); Potassium, Blood 3.3 mmol/L (3.5-5.5); Sodium, Blood 134 mmol/L (136-145)
--- NOTE | 2021-05-25 06:33 | NUR ---
patient on 50 liter via airvox.still desat to 70s whenever he pull off oxygen. also he does desat to 80s when standing up to BSC. Dyspnea upon exertion noted. immodium given for frequent loose stools that are orange/red in appearance. BG overnight running 480 at midnight check. MD Still notified and changed long acting insulin to 40 SQ BID to start in AM. and an addtional 15 units of long acting insulin given with the sliding scale. 0400 BG check still elevated at 477. MD Rashid was notified again. no new interventions/orders. only covered with sliding.
[2021-05-25] MEDS ORDERED: TRADJENTA5 MG PO (06:52)
[2021-05-25] MEDS ORDERED: EXELON1 EAC1 TD (06:53)
[2021-05-25] MEDS ORDERED: GENTAMICIN SULFATE TOP (06:55)
--- NOTE | 2021-05-25 07:13 | NUR ---
patient resting quietly. overnight CCPD complete. Patient disconnected and capped. cycler stripped and cleaned.
[2021-05-25 09:59] LABS: Glucose, Blood 520 mg/dL (70-99)
--- NOTE | 2021-05-25 10:03 | NUR ---
BLOOD GLUCOSE > [address] BESS OF ABOVE BLOOD GLUCOSE. GAVE 10U PER MED CS AND 40U SEMGLEE PER EMAR. V.O. RECEIVED TO GIVE ADDITIONAL DOSE OF 8U HUMULIN STAT AND CHANGE MED CS TO HIGH CS. ORDERS UPDATED.
[2021-05-25 13:00] LABS: Glucose, Blood 456 mg/dL (70-99)
--- NOTE | 2021-05-25 13:06 | NUR ---
BLOOD GLUCOSE [address] Lopez of above blood glucose. Patient declined lunch. Humulin given per EMAR on High CS. No new order.
--- NOTE | 2021-05-25 16:40 | NUR ---
Shift Summary A/Ox2 to self and place. Patient states Juarez Alexander as last president he remembers, does not know year. AirVo settings 50L 60L FiO2. Tolerating side lying positions, cooperative and follows simple commands well. Desats with activity to low 80's but recovers. Had 1 loose stool and was hyperglycemic today. Correction scale increased to High. Denies pain, nausea. Refused lunch, needs some assistance with feeding. Does not use call light appropriately, camera on and patient visible.
--- NOTE | 2021-05-25 19:48 | NUR ---
DIALYSIS-PD PT APPEARS TO FEEL BETTER THAN TUES NIGHT. HE TALKED ABOUT GROWING UP IN HIS FAMILY'S ROLLER RINK. TALKED ABOUT BEING GRACEFUL. THE MACHINE TOOK AWHILE TO HEAT THE SOLUTION. SITE CLEAR. [id number] TOTAL, 9.5 HOURS, 2200 ML DWELL 4 EXCHANGES, 1:54 MIN DWELL. TALKED TO RNS ABOUT ALARMS. STARTED AT 1919.
--- NOTE | 2021-05-26 04:48 | NUR ---
patient gets anxious and restless. pulls off his oxygen consantly. makes attempts to get OOB. bed alarm on for safety precautions. periotoneal dialysis infusing overnight with no complications. one person assit to the BSC. denies pain. needs to be on non rebreather in addition to airvox when getting up to BSC.
[2021-05-26 05:36] LABS: Hematocrit 30.2 % (37.0-53.0); Hemoglobin 10.6 g/dL (13.5-17.5); Mean Corpuscular HGB 32.9 pg (26.0-34.0); Mean Corpuscular HGB Conc 35.1 g/dL (31.5-36.5); Mean Corpuscular Volume 94 fL (80-100); Mean Platelet Volume 10.1 fL (9.1-12.4); Platelet Count 345 K/mm3 (150-400); RDW Coefficient Variation 12.2 % (11.7-14.2); RDW Standard Deviation 42.1 fL (35.1-46.3); Red Blood Cell Count 3.22 M/mm3 (4.30-5.90); White Blood Cell Count 13.24 K/mm3 (4.00-11.30)
[2021-05-26 05:48] LABS: Albumin, Blood 2.2 g/dL (3.4-5.0); Anion Gap 13 mmol/L (6-16); Blood Urea Nitrogen 101 mg/dL (8-24); Bun/Creatinine Ratio 13.5 (12.0-20.0); CO2, Blood 24 mmol/L (21-32); Calcium, Blood 7.8 mg/dL (8.5-10.1); Chloride, Blood 101 mmol/L (98-108); Creatinine, Blood 7.48 mg/dL (0.60-1.20); Glomerular Filtration Rate 7 (60-); Glucose, Blood 270 mg/dL (70-99); Magnesium, Blood 2.6 mg/dL (1.6-2.4); Phosphorus, Blood 5.1 mg/dL (2.5-4.9); Potassium, Blood 3.2 mmol/L (3.5-5.5); Sodium, Blood 138 mmol/L (136-145)
--- NOTE | 2021-05-26 07:01 | NUR ---
RESTING COMFORTABLY. NO APPARRENT DISTRESS. WAKENS EASILY. OVERNIGHT CCPD COMPLETE. PT DISCONNECTED AND CAPPED. CYCLER STRIPPED AND CLEANED.
[2021-05-26 08:16] LABS: BASOPHILS PERCENT MAN 0 % (0-2); EOSINOPHILS PERCENT MAN 0 % (0-6); LYMPHOCYTES ABSOLUTE MAN 0.52 K/mm3 (0.84-5.20); LYMPHOCYTES PERCENT MAN 4 % (21-46); MONOCYTES ABSOLUTE MAN 0.66 K/mm3 (0.16-1.47); MONOCYTES PERCENT MAN 5 % (4-13); NEUTROPHILS ABSOLUTE MAN 12.04 K/mm3 (1.96-9.15); SEG NEUTROPHILS PERCENT MAN 91 % (41-73); TOTAL CELLS COUNTED 100
--- NOTE | 2021-05-26 10:58 | NUR ---
PT ALERT AND ORIENTED TO SELF, FAMILY. SOME SLOW TO RESPOND. H/R REG, NO MURMER NOTED. NO TELE. PACER CDI LUCW. LUNGS CLEAR ON RT. AND CRACKLES ON LEFT TOP TO BOTTOM. PT ON AIRVO 50 L 60% FIO2. PERITONEAL DIALYSIS PORT ON LOW LEFT ABD. CDI. NO C/O PAIN AT THIS TIME. PER NITE SHIFT STATES APPEARS TO EFFECT. BED IN LOW POSITION, SYD LITE IN REACH, CALLS APPROP DAYS.
--- NOTE | 2021-05-26 17:51 | NUR ---
PT AWAKE / ALERT, MILDLY CONFUSED WITH C/O DISCOMFORT. CYCLER STRUNG, PRIMED AND PROGRAMMED PER DR ABDUL'S ORDER. PT CONNECTED AND THERAPY STARTED WHEN PRIME COMPLETE. EXIT SITE CARE DONE. SITE CLEAR, DRY AND TIGHT. MED FLOOR STAFF AWARE OF OVERNIGHT CCPD THERAPY IN PROGRESS. PT WATCHING TV AND EATTING DINNER FILL #1 COMPLETED.
--- NOTE | 2021-05-26 18:39 | NUR ---
PT PLEASANT TODAY. NO C/O PAIN. HAS BEEN ABLE TO MAKE NEEDS KNOWN AND ANSWER BASIC QUESTIONS TODAY. HAS BEEN IN CHAIR AND EXERCIZING HIS ARM CHOOSES. WAS PARTICIPATORY WITH PT/OT. NO NEW COMPLAINTS NOTED TODAY. BED IN LOW POSITION, CALL LITE IN REACH, BED ALARM ON FOR SAFETY
--- NOTE | 2021-05-27 03:45 | NUR ---
PATIENT IS MORE ORIENTED TONIGHT THAN LAST NIGHT. AIRVOX STILL IN USE. SETTINGS HAD TO BE INCREASED TO 60LITERS/94%FI02 BECAUSE HE IS VERY SOB UPON EXERTION AND OXYGEN LEVEL WAS MAINTAINING AT 82%-84% AFTER USING THE BSC. OXYGEN HAS BEEN 92% AND GREATER SINCE SETTINGS WERE CHANGED ON AIRVOX. DIARRHEA AND LOOSE STOOLS ARE DECREASING SIGNIFICANTLY. PATIENT IS A LITTLE STRONGER NOW WHEN HE IS STANDING, HOWEVER HE STILL IS A ONE PERSON ASSIST. NO OTHER CHANGES IN CONDITION OVER NIGHT OCCURED. BED ALARM ON.
[2021-05-27 06:13] LABS: Hematocrit 32.9 % (37.0-53.0); Hemoglobin 11.2 g/dL (13.5-17.5); Mean Corpuscular HGB 32.7 pg (26.0-34.0); Mean Corpuscular Volume 96 fL (80-100); Mean Platelet Volume 9.9 fL (9.1-12.4); Platelet Count 389 K/mm3 (150-400); RDW Coefficient Variation 12.3 % (11.7-14.2); RDW Standard Deviation 42.8 fL (35.1-46.3); Red Blood Cell Count 3.43 M/mm3 (4.30-5.90); White Blood Cell Count 12.89 K/mm3 (4.00-11.30)
[2021-05-27 06:44] LABS: Albumin, Blood 2.4 g/dL (3.4-5.0); Anion Gap 14 mmol/L (6-16); Blood Urea Nitrogen 102 mg/dL (8-24); CO2, Blood 26 mmol/L (21-32); Calcium, Blood 7.4 mg/dL (8.5-10.1); Chloride, Blood 101 mmol/L (98-108); Creatinine, Blood 7.29 mg/dL (0.60-1.20); Glomerular Filtration Rate 8 (60-); Glucose, Blood 142 mg/dL (70-99); Magnesium, Blood 2.1 mg/dL (1.6-2.4); Phosphorus, Blood 5.8 mg/dL (2.5-4.9); Potassium, Blood 3.3 mmol/L (3.5-5.5); Sodium, Blood 141 mmol/L (136-145)
[2021-05-27 06:55] LABS: BAND PERCENT MAN 2 % (0-8); BASOPHILS PERCENT MAN 0 % (0-2); EOSINOPHILS PERCENT MAN 0 % (0-6); LYMPHOCYTES ABSOLUTE MAN 0.51 K/mm3 (0.84-5.20); LYMPHOCYTES PERCENT MAN 4 % (21-46); MONOCYTES ABSOLUTE MAN 0.38 K/mm3 (0.16-1.47); MONOCYTES PERCENT MAN 3 % (4-13); MYELOCYTE ABSOLUTE MAN 0.12 K/mm3 (0.00-0.00); MYELOCYTE PERCENT MAN 1 % (0-0); NEUTROPHILS ABSOLUTE MAN 11.85 K/mm3 (1.96-9.15); SEG NEUTROPHILS PERCENT MAN 90 % (41-73); TOTAL CELLS COUNTED 100
--- NOTE | 2021-05-27 06:55 | NUR ---
PT RESTING QUIETLY UPON ENTRY TO ROOM THIS AM. CCPD COMPLETE. PT DISCONNECTED AND CAPPED. CATHETER SECURED FOR THE DAY. DR ABDUL CONSULTED FOR ORDERS / PLAN OF CARE.
--- NOTE | 2021-05-27 10:00 | NUR ---
PT SOCORRO AIRVO PRETTY WELL. AT 60L AND 95% FIO2. LUNGS CLEAR ON RT. AND LEFT FULL SIDE IS CRACKLES, SOME BETTER THAN YEST, PACER LUCW. PERITONEAL DIALYSIS PRT ON LOW LEFT ABD, CDI. PER DR BESS, TRY TO GET HIM PRONE. HE NOT ABLE TO TOLERATE. MOVED TO HIS LEFT SIDE, FACING WINDOW. HE SOCORRO OKAY. O2 AT 95% NOW. PT REMAINS SOME COMFUSED. OKAY WITH GENERAL QUEST. BUT NO DETAILED ANSWERS, NO DATE, AGE, SITUATION. DOES STATES IS PANTERA, NOT KNOWN IF SPELLS WITH K OR C. KNOWS , BUT NOT AGE. BED IN LOW POSITION, CALLLITE IN REACH, BED ALARM ONFOR SAFETY
--- NOTE | 2021-05-27 17:24 | NUR ---
DIALYSIS-PF WENT INTO ROOM, PT WANTING TO GET TO BR. HE IS PULLING OFF HIS O2 AND GETTING OUT OF BED. THE RN AND ORTHO/PROSTHETIC AIDE COME IN AND HELPED HIM. THE ONLY TIME HE SEEMS TO CONNECT WITH ME IS IF I TALK ABOUT HIS FAMILIES WILBERTO ANDREA FROM SEVERAL YEARS AGO. IF I ASK A QUESTION OR TRY TO TALK TO HIM, HE DOESN'T SEEM TO RELATE. I SET UP HIS TX WITH 6 L 2.5% DEXTROSE BAGS X2. PT CONNECTED TO THE TX AT 1710 PER PROTOCAL.
--- NOTE | 2021-05-27 19:41 | NUR ---
PT PLEASANT TODAY. HE DESATTED WHEN WALKED TO BATHROOM. TOOK OFF AIRVO. HAD DIALYSIS RUNNING. WAS ABLE TO RESCUE HIM AT TOILET. GOT HIM BACK ON OXYGEN. TOOK [address] REQUESTED HIM TO BE PRONE MUCH TODAY. HE DID NOT SOCORRO WELL. HAD HIM ON HIS SIDES FOR COUPLE HOUR EACH SIDE. HE DID OKAY. IS ON PD NOW. BED IN LOW POSITION, CALLLITE IN REACH, BED ALARM ONFOR SAFETY
--- NOTE | 2021-05-28 03:08 | NUR ---
OXYGEN LEVELS HAVE BEEN MAINTAINING MUCH BETTER TONIGHT. AIRVOX SETTINGS ARE ON 60LITERS/80%FI02 AND HIS OXYGEN SAT LEVEL HAS BEEN MAINTAING 95% OR GREATER .PATIENT IS ALERT AND ORIENTED X3. HE IS LESS CONFUSED TONIGHT AND HE IS LESS IMPULSIVE. BED ALARM ON. NON REBREATHER MASK PLACED OVER AIRVOX WHEN STANDING UP TO GET ON BSC BECAUSE HE WILL DESAT TO 70S-LOW 80S OTHERWISE.DENIES PAIN. DENIES NAUSEA.
[2021-05-28 05:20] LABS: Hematocrit 31.2 % (37.0-53.0); Hemoglobin 10.6 g/dL (13.5-17.5); Mean Corpuscular HGB 32.2 pg (26.0-34.0); Mean Corpuscular Volume 95 fL (80-100); Mean Platelet Volume 9.8 fL (9.1-12.4); Platelet Count 363 K/mm3 (150-400); RDW Coefficient Variation 12.3 % (11.7-14.2); RDW Standard Deviation 43.3 fL (35.1-46.3); Red Blood Cell Count 3.29 M/mm3 (4.30-5.90); White Blood Cell Count 11.76 K/mm3 (4.00-11.30)
[2021-05-28 05:45] LABS: Albumin, Blood 2.3 g/dL (3.4-5.0); Anion Gap 12 mmol/L (6-16); Blood Urea Nitrogen 105 mg/dL (8-24); Bun/Creatinine Ratio 15.4 (12.0-20.0); CO2, Blood 26 mmol/L (21-32); Chloride, Blood 102 mmol/L (98-108); Creatinine, Blood 6.81 mg/dL (0.60-1.20); Glomerular Filtration Rate 8 (60-); Glucose, Blood 172 mg/dL (70-99); Magnesium, Blood 2.1 mg/dL (1.6-2.4); Phosphorus, Blood 5.8 mg/dL (2.5-4.9); Potassium, Blood 3.3 mmol/L (3.5-5.5); Sodium, Blood 140 mmol/L (136-145)
[2021-05-28 06:31] LABS: BAND PERCENT MAN 1 % (0-8); BASOPHILS PERCENT MAN 0 % (0-2); EOSINOPHILS PERCENT MAN 0 % (0-6); LYMPHOCYTES ABSOLUTE MAN 0.47 K/mm3 (0.84-5.20); LYMPHOCYTES PERCENT MAN 4 % (21-46); METAMYELOCYTE ABSOLUTE MAN 0.23 K/mm3 (0.00-0.00); METAMYELOCYTE PERCENT MAN 2 % (0-0); MONOCYTES ABSOLUTE MAN 0.23 K/mm3 (0.16-1.47); MONOCYTES PERCENT MAN 2 % (4-13); MYELOCYTE ABSOLUTE MAN 0.35 K/mm3 (0.00-0.00); MYELOCYTE PERCENT MAN 3 % (0-0); NEUTROPHILS ABSOLUTE MAN 10.46 K/mm3 (1.96-9.15); SEG NEUTROPHILS PERCENT MAN 88 % (41-73); TOTAL CELLS COUNTED 100
--- NOTE | 2021-05-28 06:52 | NUR ---
PT AWAKE IN BED WATCHING TV THIS AM, OVERNIGHT CCPD COMPLETE . PT DISCONNECTED AND CAPPED. CYCLER STRIPPED AND CLEANED. CATHETER SECURED FOR THE DAY
--- NOTE | 2021-05-28 13:19 | NUR ---
called to check on status, report [facility] from [facility], requested pt to sleep prone and breath through nose, encouraged pt to do so, will continue to remind and encourage, also pass on to noc shift, air vo, abx infusing with no s/sx of infection or infiltration
--- NOTE | 2021-05-28 16:17 | NUR ---
very compulsive, keeps standing up, has pulled out IV once
--- NOTE | 2021-05-28 18:03 | NUR ---
DIALYSIS-PD PT SEEMS MORE INTERACTIVE TODAY, ESPECIALLY WITH HIS NURSE CIELO. THE NURSE KEPT MAKING SILLY STATEMNTS TO THE PT AND HE REALLY SEEMED TO ENJOY IT.SOMETIMES EVEN RSPONDING. HE SEEMED TO BE MOVING AROUND MORW INSTEAD OF JUST LAYING STILL IN BED. I CONNECTED HIM TO THE PD TX AFTER TESTING AND PRIMING IT. USED A 2.5% DEXTROSE 6L AND A 5.25% DEXTROSE 6 L DUE TO LOWER UF RESULTS THIS AM. CLEANED AND DRESSED SITE. SITE WNL.
--- NOTE | 2021-05-28 19:34 | NUR ---
report shared with oncoming noc nurse, trying to stay in prone position but preferes lying on his back, gave him an ensure due to refusal to eat dinner and a low cbg, promised he would drink another if it was left at bedside, left a chocolate, call light in reach, saline locked
--- NOTE | 2021-05-28 23:00 | NUR ---
PHYSICIAN CORRESPONDENCE BS [id number]; HAS 30 U SEMGLEE ORDERED. HAS HAD POOR PO INTAKE T/O DAY. NO HUMULIN GIVEN AT ALL. PATIENT ALSO STATES NOT HUNGRY AT THIS TIME. DOCTOR STATED TO GIVE 15 U SEMGLEE OT.
--- NOTE | 2021-05-29 04:10 | NUR ---
SHIFT SUMMARY ALERT. CONFUSED. IMPULSIVE. FORGETFUL. CALLS OUT FOR MAURICE PERIODICALLY. COOPERATIVE WITH CARES. 2P ASSIT TO BSC @ HS. REMAINED ON PD OVERNIGHT; TOLERATED WELL, SITE REINFORCED; PATIENT PULLS AT DRESSINGS. ATTEMPTED TO EXIT BED MULTIPLE TIMES. URGENCY /c STOOL; ATTENDS IN PLACE. REMAINS ON AIRVO 60L @ 75% FIO2; UTILIZES NON-REBREATHER @ 15L FOR ACTIVITY. REFUSES TO PRONE OR TURN ON ONE SIDE OR THE OTHER. APPEARED TO REST FOR A FEW HOURS. BED REMAINS IN LOWEST POSITION; ALARM ON. CALL LIGHT WITHIN REACH; DOES NOT UTILIZE. CONTINUE WITH CURRENT PLAN OF CARE. REPORT TO ONCOMING RN.
[2021-05-29 05:57] LABS: BASOPHILS ABSOLUTE AUTO 0.06 K/mm3 (0.00-0.23); BASOPHILS PERCENT AUTO 0 % (0-2); EOSINOPHILS ABSOLUTE AUTO 0.06 K/mm3 (0.00-0.68); EOSINOPHILS PERCENT AUTO 0 % (0-6); Hematocrit 33.4 % (37.0-53.0); Hemoglobin 11.2 g/dL (13.5-17.5); IMMATURE GRAN ABSOLUTE AUTO 0.92 K/mm3 (0.00-0.10); IMMATURE GRAN PERCENT AUTO 7 % (0-1); LYMPHOCYTES ABSOLUTE AUTO 0.73 K/mm3 (0.84-5.20); LYMPHOCYTES PERCENT AUTO 5 % (21-46); MONOCYTES ABSOLUTE AUTO 0.41 K/mm3 (0.16-1.47); MONOCYTES PERCENT AUTO 3 % (4-13); Mean Corpuscular HGB 32.2 pg (26.0-34.0); Mean Corpuscular HGB Conc 33.5 g/dL (31.5-36.5); Mean Corpuscular Volume 96 fL (80-100); Mean Platelet Volume 10.3 fL (9.1-12.4); NEUTROPHILS ABSOLUTE AUTO 11.33 K/mm3 (1.96-9.15); NEUTROPHILS PERCENT AUTO 84 % (41-73); Platelet Count 392 K/mm3 (150-400); RDW Coefficient Variation 12.5 % (11.7-14.2); RDW Standard Deviation 43.6 fL (35.1-46.3); Red Blood Cell Count 3.48 M/mm3 (4.30-5.90); White Blood Cell Count 13.51 K/mm3 (4.00-11.30)
--- NOTE | 2021-05-29 06:01 | NUR ---
PHYSICIAN CORRESPONDENCE BLOOD SUGAR RE-CHECK 444. PHYSICIAN ORDERED 30 U SEMGLEE OT.
[2021-05-29 06:18] LABS: Albumin, Blood 2.3 g/dL (3.4-5.0); Anion Gap 14 mmol/L (6-16); Blood Urea Nitrogen 108 mg/dL (8-24); Bun/Creatinine Ratio 16.3 (12.0-20.0); CO2, Blood 24 mmol/L (21-32); Calcium, Blood 7.4 mg/dL (8.5-10.1); Chloride, Blood 100 mmol/L (98-108); Creatinine, Blood 6.61 mg/dL (0.60-1.20); Glomerular Filtration Rate 8 (60-); Glucose, Blood 425 mg/dL (70-99); Magnesium, Blood 2.1 mg/dL (1.6-2.4); Phosphorus, Blood 5.4 mg/dL (2.5-4.9); Potassium, Blood 3.8 mmol/L (3.5-5.5); Sodium, Blood 138 mmol/L (136-145)
--- NOTE | 2021-05-29 07:12 | NUR ---
OVERNIGHT CCPD COMPLETE. PT AWAKE / ALERT, WATCHING TV. PT DISCONNECTED AND CAPPED. CYCLER STRIPPED AND CLEANED. DR ABDUL CONSULTED FOR ORDERS / MULLINS OF CARE.
--- NOTE | 2021-05-29 17:07 | NUR ---
SHIFT SUMMARY PT IS AO. PT DENIES N/V, PAIN. PT EXHIBITS SOB WITH EXERTION. PT IS ON AIRVO 60 L, 75% WHILE RESTING AND NONREBREATHER WITH MOVEMENT. PT ONE ASSIST TO BCC. PT HAS HAD MULTIPLE EPISODES OF DIARRHEA THIS SHIFT. ENHANCED ISOLATION PRECUATIONS MAINTAINED T/O SHIFT. PT IS IN BED, CALL LIGHT IN REACH, ALARM ON, LOW POSITION.
--- NOTE | 2021-05-29 19:24 | NUR ---
PT AWAKE /ALERT/ MILD CONFUSION. OVERNIGHT CCPD SET UP WITH CYCLER. WHEN PRIME COMPLETE, PT AESEPTICALLY CONNECTED AND THERAPY STARTED. NO DISCOMFORT NOTED OR REPORTED WITH INITIAL DRAIN OR START OF FILL #1. EXIT SITE DRESSED AND SECURED FOR THE NIGHT.
[2021-05-30 04:55] LABS: Hematocrit 29.5 % (37.0-53.0)
[2021-05-30 05:11] LABS: Albumin, Blood 2.3 g/dL (3.4-5.0); Anion Gap 11 mmol/L (6-16); Blood Urea Nitrogen 106 mg/dL (8-24); Bun/Creatinine Ratio 16.7 (12.0-20.0); CO2, Blood 26 mmol/L (21-32); Calcium, Blood 7.2 mg/dL (8.5-10.1); Chloride, Blood 101 mmol/L (98-108); Creatinine, Blood 6.35 mg/dL (0.60-1.20); Glomerular Filtration Rate 9 (60-); Glucose, Blood 176 mg/dL (70-99); Magnesium, Blood 2.1 mg/dL (1.6-2.4); Phosphorus, Blood 6.3 mg/dL (2.5-4.9); Potassium, Blood 3.7 mmol/L (3.5-5.5); Sodium, Blood 138 mmol/L (136-145)
--- NOTE | 2021-05-30 05:21 | NUR ---
SHIFT SUMMARY A/O X2, FORGETFUL AND IMPULSIVE AT TIMES. PT CONTINUES TO TAKE OFF AIRVO T/O SHIFT WITH DESATS DOWN TO THE LOW 70'S. AIRVO CURRENTLY ON 60L FIO2 75% INTERMITTENT USE OF 15L NRB. PT ABLE TO MAINTAIN SATS ABOVE 92 [address] AIR[address] IN PLACE. PT RECEIVING PERITONEAL DIALYSIS T/O NIGHT. VSS, NO ACUTE CHANGES AT THIS TIME. BED IN LOWEST POSITION WITH CALL LIGHT IN REACH. WILL CONTINUE TO MONITOR AND REPORT TO ONCOMING RN.
--- NOTE | 2021-05-30 06:59 | NUR ---
RESTING QUIETLY. OVERNIGHT CCPD COMPLETE. PT DISCONNECTED AND CAPPED. CYCLER STRIPPED AND CLEANED. DR ABDUL CONSULTED FOR ORDERS / PLAN OF CARE.
--- NOTE | 2021-05-30 16:40 | NUR ---
SHIFT SUMMARY PT IS AO AND PLEASANT. PT DENIES PAIN, N/V, SOB. PT IS ON AIRVO 60 L, 75% WITH NONREBREATHER WITH ACTIVITY. PT UP TO BCC AND HAD 3 EPISODES OF DIARRHEA THIS SHIFT. PT APPETITE IS POOR. PT HAD ONE INCIDENT OF LOW CBG THIS SHIFT AND DR ALMAGUER ADJUSTED INSULIN SEMGLEE ORDERS. ENHANCED ISOLATION PRECAUTIONS MAINTAINED T/O SHIFT. PT IS IN BED, CALL LIGHT IN REACH, LOW POSITION WITH ALARM ON.
--- NOTE | 2021-05-30 19:04 | NUR ---
pt sitting on commode. pd cath site cleaned per protocol. pd initiated per dr carver orders. access under aseptic technique. site secured with with tape. pt assisted back to bed. pd tx running without [id number]. pt stable at this time. joleen
--- NOTE | 2021-05-31 04:38 | NUR ---
SHIFT SUMMARY A/OX2, FORGETFUL BUT PLEASANT AND COOPERATIVE THIS SHIFT. CURRENTLY ON AIRVO 60L FIO2 75%, USE OF 15L NRB WITH ACTIVITY. 1 ASSIST TO BSC, CONTINUES TO HAVE INTERMITTENT DIARRHEA, PRN IMODIUM GIVEN. RECEIVED PERITONEAL DIALYSIS T/O NIGHT. VSS, NO ACUTE CHANGES AT THIS TIME. BED IN LOWEST POSITION WITH CALL LIGHT IN REACH. WILL CONTINUE TO MONITOR AND REPORT TO ONCOMING RN.
[2021-05-31 05:22] LABS: Hematocrit 30.1 % (37.0-53.0); Hemoglobin 10.3 g/dL (13.5-17.5); Mean Corpuscular HGB 32.7 pg (26.0-34.0); Mean Corpuscular HGB Conc 34.2 g/dL (31.5-36.5); Mean Corpuscular Volume 96 fL (80-100); Mean Platelet Volume 9.9 fL (9.1-12.4); Platelet Count 405 K/mm3 (150-400); RDW Coefficient Variation 12.3 % (11.7-14.2); RDW Standard Deviation 42.5 fL (35.1-46.3); Red Blood Cell Count 3.15 M/mm3 (4.30-5.90); White Blood Cell Count 13.66 K/mm3 (4.00-11.30)
[2021-05-31 05:46] LABS: Albumin, Blood 2.3 g/dL (3.4-5.0); Albumin/Globulin Ratio 0.5 (0.8-1.8); Bilirubin, Total 0.3 mg/dL (0.1-1.0); Bun/Creatinine Ratio 17.2 (12.0-20.0); C-REACTIVE PROTEIN, EXT RANGE 7.46 mg/dL (0.000-0.300); Calcium, Blood 7.3 mg/dL (8.5-10.1); Creatinine, Blood 6.12 mg/dL (0.60-1.20); Globulin, Blood 4.8 g/dL (2.2-4.0); Potassium, Blood 3.8 mmol/L (3.5-5.5); Total Protein, Blood 7.1 g/dL (6.4-8.2)
--- NOTE | 2021-05-31 18:58 | NUR ---
DIALYSIS-PD 0730 DC'ED PT FROM PD TX PER PROTOCAL. SOLUTION CLEAR. PT AWAKE AND ALERT. ID [id number] ML, UF [id number] ML.
--- NOTE | 2021-05-31 19:07 | NUR ---
TO ROOM 350 FOR PD TX. PT LYING IN BED WITH BIPAP ON. SLEEPY. TX STARTED PER DR DAVILA ORDERS UNDER ASEPTIC TECHNIQUE. PT PLEASANTLY CONFUSED, COOPERATIVE. NO APPARENT DISTRESS. STABLE. SAVANAH
[2021-06-01 05:48] LABS: Hematocrit 33.1 % (37.0-53.0); Hemoglobin 11.1 g/dL (13.5-17.5)
--- NOTE | 2021-06-01 06:38 | NUR ---
UP NOST OF NIGHT. STILL REQUIRING AIRVO AT 60L AND 75% WITH SATURATIONS IN LOW 90'S AND OCCASIONALLY DROPPING INTO MID 80'S. PATIENT IS CURRENTLY COMPLETING HIS 4TH DWELL OF PERITONEAL DIALYSIS. Nikkie HAD NO COMPLAINTS OF PAIN OR DISCOMFORT, AND DID NOT APPEAR TO BE STRUGGLING TO TOLERATE AIRVO. CALLED OUT SEVERAL TIMES AT NIGHT LOOKING FOR HIS .
[2021-06-01 06:52] LABS: Albumin, Blood 2.2 g/dL (3.4-5.0); Anion Gap 14 mmol/L (6-16); Blood Urea Nitrogen 98 mg/dL (8-24); Bun/Creatinine Ratio 16.3 (12.0-20.0); CO2, Blood 20 mmol/L (21-32); Calcium, Blood 7.3 mg/dL (8.5-10.1); Chloride, Blood 100 mmol/L (98-108); Creatinine, Blood 6.03 mg/dL (0.60-1.20); Glomerular Filtration Rate 9 (60-); Glucose, Blood 243 mg/dL (70-99); Magnesium, Blood 2.3 mg/dL (1.6-2.4); Phosphorus, Blood 7.8 mg/dL (2.5-4.9); Potassium, Blood 4.8 mmol/L (3.5-5.5); Sodium, Blood 134 mmol/L (136-145)
--- NOTE | 2021-06-01 08:18 | NUR ---
RESTING QUIETLY. WAKENS EASILY. OVERNIGHT CCPD COMPLETE. PT DISCONNECTED AND CAPPED. CATHETER SECURED FOR THE DAY. DR ABDUL CONSULTED FOR ORDERS / PLAN OF CARE.
--- NOTE | 2021-06-01 18:06 | NUR ---
DIALYSIS-PD PT SITTING UP WATCHING TV. COULD NOT REMEMBER WHAT HE WAS WATCHING. CONNECTED TO TX PER TIEN AT 1745. ID WENT WITH OUT ANY ALARMS. SITE CLEAR. PT RECIEVED HIS TRAY AND STARTED EATING TALKED TO DANNY ALMAGUER RN
--- NOTE | 2021-06-02 04:45 | NUR ---
NO SIGNIFICANT EVENTS OR CHANGES NOTED OVERNIGHT. PATIENT ON 60L/75FI02,OXYGEN MAINTAINING IN THE MID TO UPPER 90S. PD RUNNING OVERNIGHT WITH NO COMPLICATIONS.
[2021-06-02 05:15] LABS: Hematocrit 28.6 % (37.0-53.0); Hemoglobin 9.8 g/dL (13.5-17.5)
[2021-06-02 05:41] LABS: Magnesium, Blood 2.2 mg/dL (1.6-2.4)
[2021-06-02 05:42] LABS: Albumin, Blood 2.2 g/dL (3.4-5.0); Anion Gap 12 mmol/L (6-16); Blood Urea Nitrogen 99 mg/dL (8-24); Bun/Creatinine Ratio 16.6 (12.0-20.0); CO2, Blood 24 mmol/L (21-32); Calcium, Blood 6.7 mg/dL (8.5-10.1); Chloride, Blood 96 mmol/L (98-108); Creatinine, Blood 5.96 mg/dL (0.60-1.20); Glomerular Filtration Rate 9 (60-); Glucose, Blood 264 mg/dL (70-99); Phosphorus, Blood 7.7 mg/dL (2.5-4.9); Potassium, Blood 4.1 mmol/L (3.5-5.5); Sodium, Blood 132 mmol/L (136-145)
--- NOTE | 2021-06-02 07:19 | NUR ---
AWAKE , SITTING AT SIDE OF BED. OVERNIGHT CCPD COMPLETE. PT DISCONNECTED AND CAPPED. CATHETER SECURED FOR THE DAY. DR ABDUL CONSULTED FOR ORDERS / PLAN OF CARE.
--- NOTE | 2021-06-02 17:54 | NUR ---
PT REMAINS ON AIRVO, SATS 95-100% WHEN WEARING OXYGEN. HE WILL TAKE IT OFF ON OCCASION AND WILL THEN DESAT INTO THE 60'S, NO ACUTE CHANGES NOTED THIS SHIFT, WILL CONTINUE TO MONITOR AND REPORT TO ONCOMING RN
--- NOTE | 2021-06-02 19:33 | NUR ---
DIALYSIS-PD CONNECTED PT TO PD AT 1900. CATH SITE CLEAR. 1 6L 1.5% DEXTROSE DIANEAL. 1 6L 4.25% DEXTROSE DIANEAL. 9.5 HOURS. 4 EXCHANGES, [id number] WITH 2200 ML DWELL AND 200ML LAST FILL. TAPED SITE WITH TAPE.
--- NOTE | 2021-06-03 03:11 | NUR ---
NO ACUTE CHANGES NOTED IN KASEY'S CONDITION OVERNIGHT. STILL MONITORY CLOSELY BECAUSE HE REMOVES HIS OXYGEN PERIODICALLY AND DESATS INTO THE 70S. HE IS CURRENTLY ON 50LITERS VIA AIRVOX WHERE HE MOSTLY MAINTAINS GREATER THAN 92% WHILE WEARING OXYGEN. HE IS IMPULSIVE AT TIMES SO BED ALARM IS ON. RECEIVING PERIOTONEAL DIALYSIS OVERNIGHT. STILL HAVING OCCASSIONAL DIARRHEA.
[2021-06-03 04:41] LABS: Hematocrit 34.3 % (37.0-53.0); Hemoglobin 11.7 g/dL (13.5-17.5)
[2021-06-03 04:59] LABS: Albumin, Blood 2.5 g/dL (3.4-5.0); Anion Gap 13 mmol/L (6-16); Blood Urea Nitrogen 100 mg/dL (8-24); Bun/Creatinine Ratio 16.2 (12.0-20.0); CO2, Blood 23 mmol/L (21-32); Calcium, Blood 6.9 mg/dL (8.5-10.1); Chloride, Blood 97 mmol/L (98-108); Creatinine, Blood 6.16 mg/dL (0.60-1.20); Glomerular Filtration Rate 9 (60-); Glucose, Blood 224 mg/dL (70-99); Magnesium, Blood 1.8 mg/dL (1.6-2.4); Phosphorus, Blood 7.4 mg/dL (2.5-4.9); Potassium, Blood 3.7 mmol/L (3.5-5.5); Sodium, Blood 133 mmol/L (136-145)
--- NOTE | 2021-06-03 06:48 | NUR ---
PATIENT FELL AT BEDSIDE. BED ALARM WENT OFF. VIDEO BRIM CURLER CALLED JOSSIE CRUZ CNA TO NOTIFY AND I WAS DONING PPE BC PATIENT IS IN A COVID ROOM. HE IMPULSIVE STOOD UP AND FELL. IT WAS UNWITNESS. HE DOES NOT APPEAR TO ANY INJURY OTHER THAN AN ABRASION ON LEFT FOREARM. MD STEPHEN AND CERT OCCUPATIONAL THERAPY ASSTKAVITHA BIRCH WAS NOTIFED
--- NOTE | 2021-06-03 07:38 | NUR ---
AWAKE / ALERT / WATCHING TV THIS AM. CCPD COMPLETE. PT DISCONNECTED AND CAPPED. CYCLER STRIPPED AND CLEANED. DR ABDUL CONSULTED FOR ORDERS / PLAN OF CARE.
--- NOTE | 2021-06-03 18:32 | NUR ---
PT IS ALERT ORIENTED X 3,PT IS COVID POSITIVE,PT SOB WITH MOVEMENT,PT REMAIN ON AIRBO 35L FIOZ 75% PT HAVE AN ABRASION TO HIS L ARM,SKIN INTACT,PT HAVE AN OLD FISTULA ON THE LEFT ARM,PT REMAIN IN VEST RESTRAINT,ROM, NUTRITION,FLUIDS PROVIDED,PT IS IN BED,BED IN LOW POSITION,CALL LIGHT WITHIN REACH.
--- NOTE | 2021-06-03 18:50 | NUR ---
PATIENT AWAKE WATCHING TV. FINISHED WITH DINNER. CYCLER STRUNG, PRIMED AND PROGRAMMED PER DR ABDUL'S ORDER. WHEN PRIME COMPLETE, PT AESEPTICALLY CONNECTED ANF THERAPY STARTED. NO DISCOMFORT OBSERVED OR REPORTED. EXIT SITE CARE DONE AND NEW STERILE DRESSING APPLIED. MED FLOOR STAFF AWARE OF OVERNIGHT THERAPY IN PROGRESS.
[2021-06-04 05:21] LABS: Hematocrit 28.8 % (37.0-53.0); Mean Corpuscular HGB 32.4 pg (26.0-34.0); Mean Corpuscular HGB Conc 34.7 g/dL (31.5-36.5); Mean Corpuscular Volume 93 fL (80-100); Mean Platelet Volume 9.9 fL (9.1-12.4); Platelet Count 387 K/mm3 (150-400); RDW Standard Deviation 41.1 fL (35.1-46.3); Red Blood Cell Count 3.09 M/mm3 (4.30-5.90); White Blood Cell Count 13.75 K/mm3 (4.00-11.30)
[2021-06-04 05:46] LABS: Magnesium, Blood 1.8 mg/dL (1.6-2.4)
[2021-06-04 05:47] LABS: Albumin, Blood 2.2 g/dL (3.4-5.0); Anion Gap 12 mmol/L (6-16); Blood Urea Nitrogen 95 mg/dL (8-24); Bun/Creatinine Ratio 15.1 (12.0-20.0); CO2, Blood 23 mmol/L (21-32); Calcium, Blood 6.6 mg/dL (8.5-10.1); Chloride, Blood 97 mmol/L (98-108); Glomerular Filtration Rate 9 (60-); Glucose, Blood 302 mg/dL (70-99); Phosphorus, Blood 7.5 mg/dL (2.5-4.9); Potassium, Blood 4.3 mmol/L (3.5-5.5); Sodium, Blood 132 mmol/L (136-145)
--- NOTE | 2021-06-04 07:00 | NUR ---
PT RESTING QUIETLY, WAKENS EASILY. OVERNIGHT CCPD COMPLETE. PT DISCONNECTED AND CAPPED. CYLCER STRIPPED AND CLEANED. DR ABDUL CONSULTED FOR ORDERS / PLAN OF CARE.
--- NOTE | 2021-06-04 17:01 | NUR ---
PT IS ALERT ORIENTED TO SELF,PT IS COVID POSITIVE,PT IS DEMENTED AND CONFUSED AT TIMES. PT HAVE AN OLD FISTULA IN LEFT ARM. PT REMAIN IN VEST RESTRAINT,PT HAVE A SMALL ABRASION IN LEFT ARM, PT IS UP TO COMMODE WITH ASSIST. PT IS TILL ON ARIBO 30L FIO2 75%. PT IS BED,BED IN LOW POSITION, CALL LIGHT WITHIN REACH.
--- NOTE | 2021-06-04 17:24 | NUR ---
PT AWAKE / ALERT / WATCHING TV. NO VERB COMPLAINT . NO SOB REPOIRTED. CYCLER STRUNG, PRIMED AND PROGRAMMED PER DR ABDUL'S RX. PT CONNECTED WHEN PRIME COMPLETE AND INITIAL DRAIN TROUGH START OF FILL#1 OBSERVED FOR S/S OF PT DISCOMFORT. NO DISCOMFORT OBSERVED OR REPORTED. EXIT SITE CARE DONE. NEW STERILE DRESSING APPLIED WITH STRAIN RELIEFS. MED FLOOR STAFF AWARE OF OVERNIGHT CCPD IN PROGRESS
--- NOTE | 2021-06-04 19:56 | NUR ---
RESTING QUIETLY. PERITIONEAL DIALYSIS IN USE. CALL LIGHT IN REACH. ISOLATION PRECAUTIONS MAINTAINED.
--- NOTE | 2021-06-05 04:48 | NUR ---
REGULATORY ASSOCIATE SUMMARY ADMITTED FOR COVID. PT IS FULL CODE. PT CONFUSED THROUGHOUT THE SHIFT. JOSH LEFT IN PLACE DUE TO INCREASED CONFUSION AND IMPULSIVITY. PT ON AIRVO - SATURATES AT 79% ON RA WHEN HE REMOVES HIS MASK. PT PUTS MASK BACK ON WHEN ASKED - SATURATING HIGH 90S. NO OTHER CONCERNS THIS SHIFT.
[2021-06-05 05:13] LABS: Hematocrit 28.6 % (37.0-53.0); Hemoglobin 9.9 g/dL (13.5-17.5)
[2021-06-05 05:36] LABS: Albumin, Blood 2.3 g/dL (3.4-5.0); Anion Gap 11 mmol/L (6-16); Blood Urea Nitrogen 98 mg/dL (8-24); CO2, Blood 24 mmol/L (21-32); Calcium, Blood 6.5 mg/dL (8.5-10.1); Chloride, Blood 96 mmol/L (98-108); Creatinine, Blood 6.14 mg/dL (0.60-1.20); Glomerular Filtration Rate 9 (60-); Glucose, Blood 263 mg/dL (70-99); Magnesium, Blood 1.7 mg/dL (1.6-2.4); Phosphorus, Blood 7.5 mg/dL (2.5-4.9); Potassium, Blood 4.2 mmol/L (3.5-5.5); Sodium, Blood 131 mmol/L (136-145)
--- NOTE | 2021-06-05 07:01 | NUR ---
RESTING QUIETLY. WAKENS EASILY. OVERNIGHT CCPD COMPLETE. PT AESEPTICALLY DISCONNECTED AND CAPPED. CATHETER SECURED FOR THE DAY. CYCLER STRIPPED AND CLEANED. DR ABDUL CONSULTED.
--- NOTE | 2021-06-05 17:04 | NUR ---
DIALYSIS-PD PT LYING IN BED WATCHING TV. SEEMED IN REALLY GOOD SPIRITS. CONNECTED PT TO PD PER PROTOCAL. TAPED DOWN SECURELY TO PREVENT PT FROM PLAYING WITH IT. SAME RX YESTERDAY. SITE CLEAR.
--- NOTE | 2021-06-05 18:32 | NUR ---
PT IS ALERT TO SELF, PT IS CONDUSED,HAVE ALZHEIMER,PT IS BEEN USING THE CALL LIGHT THIS AFTERNOON,PT IS HAVING DP, PT IN BED,BED IN LOW POSITION,CALL IN REACH, WILL CONTINUE TO MONITOR.
--- NOTE | 2021-06-06 01:58 | NUR ---
PT DESATURATED TO 71% WHEN GETTING UP TO COMMODE WITH COMPLAINTS OF LIGHTHEADEDNESS AND PRE-SYNCOPE. OXYGEN RETURNED TO 82% BEFORE GETTING BACK INTO BED. PT AIRVO TURNED UP TO 80% FIO2 WITH NO IMPROVEMENT. PT PUT ON NRB AT 15L WITH IMPROVEMENT TO 95%. WILL CONTINUE TO MONITOR OXYGEN SATURATION.
--- NOTE | 2021-06-06 06:48 | NUR ---
ELECTROSLAG WELDING MACHINE OPERATOR SUMMARY ADMITTED FOR COVID. PT IS FULL CODE. PT STILL CONFUSED AND IMPULSIVE - REMAINED IN A JOSH ALL SHIFT. PT DESATURATED WITH AMBULATION TO COMMODE - AIRVO INCREASED TO 50L AT 90%. NO OTHER CONCERNS THIS SHIFT.
--- NOTE | 2021-06-06 07:09 | NUR ---
AWAKE / ALERT WATCHING TV THIS AM OVERNIGHT CCPD COMPLETE. PT DISCONNECTED AND CAPPED. CYCLER STRIPPED AND CLEANED. DR ABDUL CONSULTED VIA PHONE.
--- NOTE | 2021-06-06 17:48 | NUR ---
DIALYSIS-PD PT LOOKS MORE AND MORE IMPROVED. HE KEPT ASKING ABOUT DINNER, WANTED TO KNOW WHAT IT WAS GOING TO BE. CONNECTED TO PD TX AT 1730, HAD A LOW FLOW ERROR. BYPASSED AFTER SECOND ALARM. SAME RX. SITE CLEAR. TALKED TO RM ABOUT THE TX.
--- NOTE | 2021-06-06 18:27 | NUR ---
SHIFT SUMMARY PT A/O X2 TO SELF, PLACE, AND SURROUNDINGS. PT PLEASANT BUT WILL CALL OUT IN ORDER TO MAKE NEEDS KNOWN. CURRENTLY ON AIRVO AND SATTING >92%. WILL DESAT WITH AMBULATION INTO THE HIGH 70'S-LOW 80'S. UNDID HIS JOSH AND GOT HIMSELF UP TO THE BSC WITHOUT CALLING THIS SHIFT. REDIRECTED TO USE THE CALL LIGHT AND NOT GET UP ON HIS OWN AGAIN. JOSH VEST REMAINS IN PLACE AND HE IS TOLERATING IT WELL. PT IS CURRENTLY ON PD. VSS. WILL REPORT TO ONCOMING RN.
--- NOTE | 2021-06-07 04:15 | NUR ---
STUDENT RECORDS SPECIALIST SUMMARY ADMITTED FOR COVID. PT IS FULL CODE. PLAN FOR SUPPORTIVE OXYGEN THERAPY UNTIL SATURATIONS IMPROVE. PT IS ON AIRVO - DESATURATES IMMEDIATELY WHEN REMOVED OR WHEN PT GETS UP TO BSC. WHILE IN BED, PT SATURATING AT 100% ON 90% AT 50L. PT TITRATED DOWN TO 70% AND SATURATING 94% AND ABOVE. PT IN JOSH DUE TO CONFUSION AND IMPULSIVITY - PT HAS TRIED GETTING OUT TWICE - EASILY REDIRECTABLE AND COOPERATIVE. PT MEDICATED WITH IMMODIUM X1 FOR MULTIPLE DAYS OF LOOSE STOOLS. NO OTHER CONCERNS THIS SHIFT. ISOLATION MAINTAINED.
[2021-06-07 05:07] LABS: Hematocrit 28.4 % (37.0-53.0); Hemoglobin 9.7 g/dL (13.5-17.5); Mean Corpuscular HGB 32.6 pg (26.0-34.0); Mean Corpuscular HGB Conc 34.2 g/dL (31.5-36.5); Mean Corpuscular Volume 95 fL (80-100); Mean Platelet Volume 9.5 fL (9.1-12.4); Platelet Count 354 K/mm3 (150-400); RDW Coefficient Variation 12.3 % (11.7-14.2); RDW Standard Deviation 41.8 fL (35.1-46.3); Red Blood Cell Count 2.98 M/mm3 (4.30-5.90); White Blood Cell Count 15.13 K/mm3 (4.00-11.30)
[2021-06-07 05:27] LABS: Albumin, Blood 2.3 g/dL (3.4-5.0); Albumin/Globulin Ratio 0.5 (0.8-1.8); Bilirubin, Total 0.4 mg/dL (0.1-1.0); Bun/Creatinine Ratio 16.6 (12.0-20.0); C-REACTIVE PROTEIN, EXT RANGE 1.8 mg/dL (0.000-0.300); Calcium, Blood 6.4 mg/dL (8.5-10.1); Creatinine, Blood 5.9 mg/dL (0.60-1.20); Globulin, Blood 4.6 g/dL (2.2-4.0); Magnesium, Blood 1.9 mg/dL (1.6-2.4); Potassium, Blood 3.9 mmol/L (3.5-5.5); Total Protein, Blood 6.9 g/dL (6.4-8.2)
--- NOTE | 2021-06-07 08:57 | NUR ---
to room 350 for termination of pd, pt lying in bed eating breakfast, rn in room. pt is quiet and cooperative. stable. machine reviewed. UF [id number]; ID;[id number], ADT 1;43,. CATHETHER CAPPED UNDER ASEPTIC TECHNIQUE. SITE CLEAN AND SECURED, CAPPED WITH STERIL CAP. SAVANAH
--- NOTE | 2021-06-07 18:28 | NUR ---
SHIFT SUMMARY PT DOING WELL THIS SHIFT. ABLE TO AMBULATE TO THE BSC WHILE MAINTAINING O2 SATURATION >92%. HOWEVER, PT FEELS THE NEED TO HAVE A BM OFTEN. SMALL LOOSE STOOLS, IMMODIUM GIVEN. OUT OF RESTRAINTS DUE TO THE PATIENT BEING REDIRECTABLE AND CALLING TO GET OUT OF BED. VSS. WILL REPORT TO ONCOMING RN.
--- NOTE | 2021-06-07 19:45 | NUR ---
to room 350 for evening pd tx. pt pleasant and cooperative. confused and wanting to be oob. night nurse notified. tx initiated per md orders. catheter site wnl. no redness or drainage. joleen
--- NOTE | 2021-06-08 04:44 | NUR ---
SHIFT SUMMARY PT SLEPT WELL MOST OF THIS EVENING. ONE EPISODE OF LOOSE STOOL. LARGE AMOUNT. PERITONEAL DIALYSIS RUNNING THROUGHOUT THE NIGHT. AIRVO AT 50 L AND 60% FIO2. PT DOES GET SOB WITH EXERTION AND O2 SATS DROP INTO THE MID 80'S BUT PT RECOVERS WELL. PT FORGETFUL. BED ALARM ON FOR SAFETY. VITAL SIGNS STABLE. WILL CONTINUE TO MONITOR.
[2021-06-08 04:47] LABS: BASOPHILS ABSOLUTE AUTO 0.04 K/mm3 (0.00-0.23); BASOPHILS PERCENT AUTO 0 % (0-2); EOSINOPHILS ABSOLUTE AUTO 0.25 K/mm3 (0.00-0.68); EOSINOPHILS PERCENT AUTO 2 % (0-6); Hematocrit 29.5 % (37.0-53.0); Hemoglobin 10.1 g/dL (13.5-17.5); IMMATURE GRAN ABSOLUTE AUTO 0.65 K/mm3 (0.00-0.10); IMMATURE GRAN PERCENT AUTO 5 % (0-1); LYMPHOCYTES ABSOLUTE AUTO 1.01 K/mm3 (0.84-5.20); LYMPHOCYTES PERCENT AUTO 7 % (21-46); MONOCYTES ABSOLUTE AUTO 0.72 K/mm3 (0.16-1.47); MONOCYTES PERCENT AUTO 5 % (4-13); Mean Corpuscular HGB 32.5 pg (26.0-34.0); Mean Corpuscular HGB Conc 34.2 g/dL (31.5-36.5); Mean Corpuscular Volume 95 fL (80-100); Mean Platelet Volume 9.5 fL (9.1-12.4); NEUTROPHILS ABSOLUTE AUTO 11.21 K/mm3 (1.96-9.15); NEUTROPHILS PERCENT AUTO 81 % (41-73); Platelet Count 322 K/mm3 (150-400); RDW Coefficient Variation 12.5 % (11.7-14.2); RDW Standard Deviation 42.6 fL (35.1-46.3); Red Blood Cell Count 3.11 M/mm3 (4.30-5.90); White Blood Cell Count 13.88 K/mm3 (4.00-11.30)
[2021-06-08 05:07] LABS: Albumin, Blood 2.4 g/dL (3.4-5.0); Anion Gap 11 mmol/L (6-16); Blood Urea Nitrogen 99 mg/dL (8-24); Bun/Creatinine Ratio 16.3 (12.0-20.0); CO2, Blood 25 mmol/L (21-32); Calcium, Blood 6.8 mg/dL (8.5-10.1); Chloride, Blood 97 mmol/L (98-108); Creatinine, Blood 6.08 mg/dL (0.60-1.20); Glomerular Filtration Rate 9 (60-); Glucose, Blood 359 mg/dL (70-99); Phosphorus, Blood 6.9 mg/dL (2.5-4.9); Potassium, Blood 4.1 mmol/L (3.5-5.5); Sodium, Blood 133 mmol/L (136-145)
--- NOTE | 2021-06-08 07:11 | NUR ---
RESTING QUIETLY BUT WAKENS EASILY. OVERNIGHT THERAPY COMPLETE. PT DISCONNECTED AND CAPPED. CATHETER SECURED FOR THE DAY. DR ABDUL CONSULTED VIA PHONE.
--- NOTE | 2021-06-08 14:57 | NUR ---
PT HEART RATE THIS RN NOTIFIED OF PT HEART RATE DROPPING TO 44 BPM A FEW TIMES DURING THE POLICE SERGEANT. THIS RN NOTED PT TO BE IN BRADYCARDIA A FEW TIMES DURING DAY SHIFT ON PULSE OXIMETER. THIS RN DID AN APICAL PULSE AND FOUND HEART RATE TO BE [address] THIS RN CALLED DR. BSES TO DISCUSS FINDINGS AND RECEIVED ORDERS TO PERFORM EKG DURING THE NEXT BRADYCARDIA EPISODE. THIS RN WILL CONTINUE TO MONITOR PT STATUS.
--- NOTE | 2021-06-08 16:02 | NUR ---
SHIFT SUMMARY PT IS AO AND PLEASANT. PT IS ON AIRVO 40 L AT 59% WITH SATS AT 100%. PT DESATS WITH MOVEMENT TO MID 80S. PT DENIES PAIN, N/V. PT C/O SOB WITH EXERTION. PT IS ONE ASSIST TO BCC. PT IS TO HAVE PERITONEAL DIALYSIS TONIGHT. PT APPETITE IS GOOD. ENHANCED ISOLATION PRECUATIONS MAINTAINED T/O SHIFT. NO ACUTE EVENTS THIS SHIFT. PT IS IN BED, CALL LIGHT IN REACH, LOW POSITION.
--- NOTE | 2021-06-08 19:13 | NUR ---
TO ROOM 350 FOR PD TX. OPT PLEASANT AND COOPERATIVE, CONFUSED. TX CONNECTED, PER MD ORDERS. SAVANAH
--- NOTE | 2021-06-09 04:31 | NUR ---
SHIFT SUMMARY PT FOUND UP IN BATHROOM AT START OF SHIFT. CONT OX MACHINE READING O2 SATS IN THE 70'S AND HEART RATE IN THE 120'S AT THIS TIME. PT YELLING FOR HELP. STOOL ON THE GROUND. PD PORT REMAINED INTACT AND RUNNING. AIRVO NO LONGER IN PT'S NOSE. REPLACED AIRVO AND ASSISTED PT BACK TO BED. O2 SATS AND HEART RATE RECOVERED QUICKLY. REMINDED PT MULTIPLE TIMES HOW TO USE CALL LIGHT BUT EACH TIME WHEN ASKED SEVERAL MINUTES LATER PT DID NOT REMEMBER. BED ALARM TURNED ON FOR SAFETY THROUGHOUT THE NIGHT. PT HAD 2 EPISODES OF LOOSE STOOL. O2 SATS VARY FROM 92-97%. HEART RATE APPEARS TO DROP INTO THE 40'S INTERMITTENTLY PER CONTIUOUS OX BUT ONLY STAYS THERE FOR A COUPLE SECONDS AND THEN COMES BACK UP TO THE 70'S. OTHERWISE VITAL SIGNS STABLE. PERITONEAL DIALYSIS STILL RUNNING AT THIS TIME. PT DENIES PAIN. WILL CONTINUE TO MONITOR.
[2021-06-09 04:54] LABS: BASOPHILS ABSOLUTE AUTO 0.03 K/mm3 (0.00-0.23); BASOPHILS PERCENT AUTO 0 % (0-2); EOSINOPHILS ABSOLUTE AUTO 0.25 K/mm3 (0.00-0.68); EOSINOPHILS PERCENT AUTO 2 % (0-6); Hematocrit 29.7 % (37.0-53.0); Hemoglobin 10.1 g/dL (13.5-17.5); IMMATURE GRAN ABSOLUTE AUTO 0.65 K/mm3 (0.00-0.10); IMMATURE GRAN PERCENT AUTO 5 % (0-1); LYMPHOCYTES PERCENT AUTO 8 % (21-46); MONOCYTES ABSOLUTE AUTO 0.66 K/mm3 (0.16-1.47); MONOCYTES PERCENT AUTO 5 % (4-13); Mean Corpuscular HGB 32.2 pg (26.0-34.0); Mean Corpuscular Volume 95 fL (80-100); Mean Platelet Volume 9.7 fL (9.1-12.4); NEUTROPHILS ABSOLUTE AUTO 11.68 K/mm3 (1.96-9.15); NEUTROPHILS PERCENT AUTO 81 % (41-73); Platelet Count 312 K/mm3 (150-400); RDW Coefficient Variation 12.4 % (11.7-14.2); RDW Standard Deviation 42.6 fL (35.1-46.3); Red Blood Cell Count 3.14 M/mm3 (4.30-5.90); White Blood Cell Count 14.37 K/mm3 (4.00-11.30)
[2021-06-09 05:13] LABS: Albumin, Blood 2.5 g/dL (3.4-5.0); Anion Gap 12 mmol/L (6-16); Blood Urea Nitrogen 96 mg/dL (8-24); Bun/Creatinine Ratio 16.1 (12.0-20.0); CO2, Blood 25 mmol/L (21-32); Calcium, Blood 6.9 mg/dL (8.5-10.1); Chloride, Blood 96 mmol/L (98-108); Creatinine, Blood 5.96 mg/dL (0.60-1.20); Glomerular Filtration Rate 9 (60-); Glucose, Blood 331 mg/dL (70-99); Phosphorus, Blood 6.3 mg/dL (2.5-4.9); Potassium, Blood 4.1 mmol/L (3.5-5.5); Sodium, Blood 133 mmol/L (136-145)
--- NOTE | 2021-06-09 07:31 | NUR ---
RESTING QUIETLY BUT WAKENS EASILY. OVERNIGHT CCPD COMPLETE. PT DISCONNECTED AND CAPPED, CATHETER SECURED. CYCLER STRIPPED AND CLEANED. DR ABDUL CONSULTED.
--- NOTE | 2021-06-09 15:50 | NUR ---
SHIFT SUMMARY PT IS AO AND PLEASANT. PT IS FORGETFUL OF LIMITATIONS AT TIMES. PT DENIES PAIN, N/V, SOB. ENHANCED ISOLATION PRECAUTIONS MAINTAINED T/O SHIFT. PT APPETITE IS MODERATE. PT UP TO CHAIR AND BCC WITH SBA. PT CONTINUES TO BE ON AIRVO 40L, 60%. PT REFUSES TO PRONE, BUT REPOSITIONED ON RIGHT SIDE FOR ABOUT 2 HOURS THIS SHIFT. PT IS IN BED, CALL LIGHT IN REACH, LOW POSITION. THIS RN WILL CONTINUE TO MONITOR PT STATUS.
--- NOTE | 2021-06-09 18:05 | NUR ---
PT AWAKE, IN BED WATCHING TV. CYCLER STRUNG, PRIMED AND PROGRAMMED PER DR ABDUL'S RX. PT CONNECTED WHEN PRIME COMPLETE. CATHETER SECURED WITH MULTIPLE STRAIN RELIEFS. EXIT SITE CARE DONE. NEW STERILE DRESSING APPLIED. MED FLOOR STAFF AWARE OF OVERNIGHT THERAPY IN PROGRESS.
--- NOTE | 2021-06-10 03:54 | NUR ---
RECEIVED PATIENT IN BED AAOX3. HE DENIES ANY DISCOMFORT. PATIENT REMAINS SHORT OF BREATH WITH EXERTION. NO ACUTE RESPIRATORY DISTRESS NOTED. ON AIRVO AT 40 LITERS SATURATING 100% NO COUGH. PATIENT DENIES CHEST CONGESTION. LUNGS CLEAR BUT DIMINISHED AT LEFT LOWER BASE. AV FISTULA TO LEFT ARM WITH POSITIVE BRUIT AND THRILL. PERITONEAL DIALYSIS CATHETER TO LEFT ABDOMEN WITH DRESSING DRY AND INTACT. COMFORT AND SAFETY MEASURES MAINTAINED. CALL LIGHT WITHIN REACH. STILL ON DROPLET PRECAUTIONS. WILL CONTINUE TO MONITOR.
[2021-06-10 04:41] LABS: BASOPHILS ABSOLUTE AUTO 0.05 K/mm3 (0.00-0.23); BASOPHILS PERCENT AUTO 0 % (0-2); EOSINOPHILS ABSOLUTE AUTO 0.27 K/mm3 (0.00-0.68); EOSINOPHILS PERCENT AUTO 2 % (0-6); Hematocrit 32.5 % (37.0-53.0); Hemoglobin 10.9 g/dL (13.5-17.5); IMMATURE GRAN ABSOLUTE AUTO 0.41 K/mm3 (0.00-0.10); IMMATURE GRAN PERCENT AUTO 3 % (0-1); LYMPHOCYTES ABSOLUTE AUTO 1.27 K/mm3 (0.84-5.20); LYMPHOCYTES PERCENT AUTO 9 % (21-46); MONOCYTES ABSOLUTE AUTO 0.77 K/mm3 (0.16-1.47); MONOCYTES PERCENT AUTO 6 % (4-13); Mean Corpuscular HGB 32.6 pg (26.0-34.0); Mean Corpuscular HGB Conc 33.5 g/dL (31.5-36.5); Mean Corpuscular Volume 97 fL (80-100); Mean Platelet Volume 9.5 fL (9.1-12.4); NEUTROPHILS ABSOLUTE AUTO 11.15 K/mm3 (1.96-9.15); NEUTROPHILS PERCENT AUTO 80 % (41-73); Platelet Count 304 K/mm3 (150-400); RDW Coefficient Variation 12.6 % (11.7-14.2); RDW Standard Deviation 44.1 fL (35.1-46.3); Red Blood Cell Count 3.34 M/mm3 (4.30-5.90); White Blood Cell Count 13.92 K/mm3 (4.00-11.30)
[2021-06-10 05:12] LABS: Albumin, Blood 2.5 g/dL (3.4-5.0); Anion Gap 15 mmol/L (6-16); Blood Urea Nitrogen 90 mg/dL (8-24); Bun/Creatinine Ratio 15.8 (12.0-20.0); CO2, Blood 20 mmol/L (21-32); Calcium, Blood 6.9 mg/dL (8.5-10.1); Chloride, Blood 97 mmol/L (98-108); Creatinine, Blood 5.71 mg/dL (0.60-1.20); Glomerular Filtration Rate 10 (60-); Glucose, Blood 296 mg/dL (70-99); Phosphorus, Blood 6.2 mg/dL (2.5-4.9); Potassium, Blood 4.3 mmol/L (3.5-5.5); Sodium, Blood 132 mmol/L (136-145)
--- NOTE | 2021-06-10 07:10 | NUR ---
PT RESTING QUIETLY. WAKENS EASILY. OVERNIGHT CCPD COMPLETE. PT DISCONNECTED AND CAPPED. CATHETER SECURED FOR THE DAY. CYCLER STRIPPED AND CLEANED. DR ABDUL COSULTED VIA PHONE.
--- NOTE | 2021-06-10 18:40 | NUR ---
Alert and oriented with some confusion. vital signs are stable.Insulin coverage was done and no adverse effects noted. Worked with PT/OT for endurance and strenthen , Pt reported poor performance. Started peritoneal dialysis, continue to monitor.
--- NOTE | 2021-06-10 19:14 | NUR ---
DIALYSIS-PD PT SITTING UP IN BED WATCHING TV. VERY FRIENDLY. CONNECTED PD TX TO PT AT 1845 PER TIEN. TAPED DOWN WELL HOPING HE WILL LEAVE ALONE. PT HAS NOT PLAYED WITH IT IN THE PAST THAT I AM AWARE OF. SITE CLEAR. TALKED TO THE RN WHO HAS HAD PD PT. TOLD HIM WHAT TO DO IF IT ALARMS.
--- NOTE | 2021-06-11 04:47 | NUR ---
RECEIVED PATIENT IN BED AAO BUT FORGETFUL. LUNGS WITH DIMINISHED BREATH SOUNDS AT LOWER BASES. PATIENT DENIES CHEST CONGESTION. ON AIRVO 40 L AND CONTINUOUS PULSE OX SATURATING AT 100%. NO DYSPNEIC EPISODE. AV FISTULA TO LEFT ARM WITH BRUIT AND THRILL. PATIENT HAS BEEN ON PERITONEAL DIALYSIS SINCE THE START OF SHIFT. HE DENIES ANY DISCOMFORT. SAFETY MEASURES MAINTAINED. ROUNDING IN PROGRESS.
[2021-06-11 05:37] LABS: BASOPHILS ABSOLUTE AUTO 0.04 K/mm3 (0.00-0.23); BASOPHILS PERCENT AUTO 0 % (0-2); EOSINOPHILS ABSOLUTE AUTO 0.37 K/mm3 (0.00-0.68); EOSINOPHILS PERCENT AUTO 3 % (0-6); Hematocrit 27.7 % (37.0-53.0); Hemoglobin 9.2 g/dL (13.5-17.5); IMMATURE GRAN ABSOLUTE AUTO 0.51 K/mm3 (0.00-0.10); IMMATURE GRAN PERCENT AUTO 4 % (0-1); LYMPHOCYTES ABSOLUTE AUTO 1.34 K/mm3 (0.84-5.20); LYMPHOCYTES PERCENT AUTO 11 % (21-46); MONOCYTES ABSOLUTE AUTO 0.82 K/mm3 (0.16-1.47); MONOCYTES PERCENT AUTO 7 % (4-13); Mean Corpuscular HGB 32.3 pg (26.0-34.0); Mean Corpuscular HGB Conc 33.2 g/dL (31.5-36.5); Mean Corpuscular Volume 97 fL (80-100); Mean Platelet Volume 9.6 fL (9.1-12.4); NEUTROPHILS ABSOLUTE AUTO 9.13 K/mm3 (1.96-9.15); NEUTROPHILS PERCENT AUTO 75 % (41-73); Platelet Count 300 K/mm3 (150-400); RDW Coefficient Variation 12.5 % (11.7-14.2); RDW Standard Deviation 43.8 fL (35.1-46.3); Red Blood Cell Count 2.85 M/mm3 (4.30-5.90); White Blood Cell Count 12.21 K/mm3 (4.00-11.30)
[2021-06-11 06:42] LABS: Albumin, Blood 2.4 g/dL (3.4-5.0); Anion Gap 10 mmol/L (6-16); Blood Urea Nitrogen 94 mg/dL (8-24); Bun/Creatinine Ratio 16.2 (12.0-20.0); CO2, Blood 24 mmol/L (21-32); Calcium, Blood 6.8 mg/dL (8.5-10.1); Chloride, Blood 100 mmol/L (98-108); Creatinine, Blood 5.81 mg/dL (0.60-1.20); Glomerular Filtration Rate 10 (60-); Glucose, Blood 255 mg/dL (70-99); Phosphorus, Blood 6.1 mg/dL (2.5-4.9); Potassium, Blood 4.2 mmol/L (3.5-5.5); Sodium, Blood 134 mmol/L (136-145)
--- NOTE | 2021-06-11 07:31 | NUR ---
PT IN BED RESTING AWAKE/ALERT. OVERNIGHT THERAPY COMPLETE. NEG UF NOTED. PT DISCONNECTED AND CAPPED, CATHETER SECURED. CYCLER STRIPPED AND CLEANED. DR ABDUL CONSULTED
--- NOTE | 2021-06-11 18:38 | NUR ---
DIALYSIS-PD PT SITTING IN BED EATING ICE CREAM. I CONNECTED HIS TX PER PROTOCAL AND CHANGED HIS DRESSING. SITE CLEAR. HE WAS COMPLAINING ABOUT STUPID REPORTERS WHILE WATCHING [employer] NEWS. INITIAL DRAIN COMPLETED AND STARTED FIRST FILL. SOLUTION CLEAR.
--- NOTE | 2021-06-11 18:40 | NUR ---
Alert and oriented x2 with some confusion. Denies any pain. Insulin coverage was done , no adverse effects noted. One person assist with transfer. Pt desat to 80% when transferred to use bedside commode. No SOB , headache , fever and dizziness reported. PD started , continue to monitor.
--- NOTE | 2021-06-11 23:20 | NUR ---
BLOOD GLUCOSE AT HS 481. HS SANGLEE GIVEN. DR. STEPHEN WAS CALLED AND MADE AWARE. ORDER GIVEN TO CHANGE REGULAR AC SLIDING SCALE TO HIGH AND TO GIVE ONE EXTRA HS DOSE PER SLIDING SCALE. 6 UNITS OF REGULAR INSULIN GIVEN PER SLIDING SCALE. PATIENT REPORTS THAT HE ATE AN ICE CREAM FOR SNACK. COMPLIANCE WITH DIET REINFORCED. WILL CONTINUE TO MONITOR.
--- NOTE | 2021-06-12 03:17 | NUR ---
RECEIVED PATIENT IN BED AAOX3. PATIENT DENIES ANY DISCOMFORT. OCCASIONAL MOIST NON-PRODUCTIVE COUGH. PATIENT IS ON AIRVO AT 60% FIO2. HE REMAINS SHORT OF BREATH WITH ACTIVITY. SATURATING AT 96-100% AT REST. AV FISTULA LEFT ARM WITH THRILL AND BRUIT. PERITONEAL DIALYSIS IN PROGRESS. ABDOMINAL DRESSING DRY AND INTACT. PATIENT HAD ONE SOFT BOWEL MOVEMENT. CALL LIGHT WITHIN REACH. SAFETY PRECAUTIONS MAINTAINED. VSS.
[2021-06-12 05:12] LABS: BASOPHILS ABSOLUTE AUTO 0.02 K/mm3 (0.00-0.23); BASOPHILS PERCENT AUTO 0 % (0-2); EOSINOPHILS ABSOLUTE AUTO 0.25 K/mm3 (0.00-0.68); EOSINOPHILS PERCENT AUTO 2 % (0-6); Hematocrit 27.2 % (37.0-53.0); Hemoglobin 9.4 g/dL (13.5-17.5); IMMATURE GRAN ABSOLUTE AUTO 0.46 K/mm3 (0.00-0.10); IMMATURE GRAN PERCENT AUTO 4 % (0-1); LYMPHOCYTES ABSOLUTE AUTO 1.15 K/mm3 (0.84-5.20); LYMPHOCYTES PERCENT AUTO 10 % (21-46); MONOCYTES PERCENT AUTO 7 % (4-13); Mean Corpuscular HGB 32.6 pg (26.0-34.0); Mean Corpuscular HGB Conc 34.6 g/dL (31.5-36.5); Mean Corpuscular Volume 94 fL (80-100); Mean Platelet Volume 9.4 fL (9.1-12.4); NEUTROPHILS ABSOLUTE AUTO 8.54 K/mm3 (1.96-9.15); NEUTROPHILS PERCENT AUTO 76 % (41-73); Platelet Count 285 K/mm3 (150-400); RDW Coefficient Variation 12.7 % (11.7-14.2); RDW Standard Deviation 43.4 fL (35.1-46.3); Red Blood Cell Count 2.88 M/mm3 (4.30-5.90); White Blood Cell Count 11.22 K/mm3 (4.00-11.30)
[2021-06-12 05:41] LABS: Albumin, Blood 2.4 g/dL (3.4-5.0); Anion Gap 11 mmol/L (6-16); Blood Urea Nitrogen 88 mg/dL (8-24); Bun/Creatinine Ratio 15.9 (12.0-20.0); CO2, Blood 24 mmol/L (21-32); Calcium, Blood 6.5 mg/dL (8.5-10.1); Chloride, Blood 97 mmol/L (98-108); Creatinine, Blood 5.53 mg/dL (0.60-1.20); Glomerular Filtration Rate 10 (60-); Glucose, Blood 318 mg/dL (70-99); Phosphorus, Blood 5.6 mg/dL (2.5-4.9); Potassium, Blood 4.2 mmol/L (3.5-5.5); Sodium, Blood 132 mmol/L (136-145)
--- NOTE | 2021-06-12 07:47 | NUR ---
PT IN BED, AWAKE, ALERT AND WAITING FOR BREAKFAST. OVERNIGHT CCPD COMPLETE. PT DISCONNECTED AND CAPPED. CATHETER SECURED. CYCLER STRIPPED AND CLEANED. DR ABDUL CONSULTED VIA PHONE.
--- NOTE | 2021-06-12 18:07 | NUR ---
PT AWAKE/ ALERT/ IN BED, EAGERLY ANTICIPATING DINNER. CYCLER STRUNG, PRIMED AND PROGRAMMED PER DR ABDUL'S RX PT AESEPTICALLY CONNECTED AND THERAPY STARTED WHEN PRIME COMPLETE. EXIT SITE CARE DONE. NEW STERILE DRESSING APPLIED. MED FLOOR STAFF AWARE OF OVERNIGHT THERPY IN PROCESS.
--- NOTE | 2021-06-12 18:50 | NUR ---
Alert and oriented x 2 with some confusion and forgetfulness. Continue on airvo 40 L , SP02 at 90-92%. Continue to desat when out of bed or when remove oxygen. Insulin coverage for blood sugar was done , no adverse effect noted. one person assist with ADls and used of bedside commode. continue to monitor
--- NOTE | 2021-06-12 20:06 | NUR ---
ASSUMED CARE. AOX3 JUST FORGETFUL ON DATE. ABLE TO STATE HX AND WHAT IS HAPPENING. CALLS APPROPRIATLY. LS COURSE, ON AIRVO 45L. SATS 85% BUT HE HAD IT OFF BECAUSE HE THOUGHT IT WAS PEEPING. THE MACHINE JUST NEEDED WATER. NO COUGH NOTED. ABLE TO GET UP INDEPENDENTLY TO BSC, DESATS OCCATIONALLY. ONCE MACHINE IS ON HIS SATS AVERAGE 90%. TOOK MEDS WITH NO PROBLEMS. DENIES ANY NEEDS. CALL LIGHT IN REACH.
[2021-06-13 05:14] LABS: Hemoglobin 9.2 g/dL (13.5-17.5)
--- NOTE | 2021-06-13 05:36 | NUR ---
SHIFT SUMMARY: REMAINS ON AIRVO 45L FIO2 30% SATS MAINTAINING 94%. OCCATIONAL COUGH. DYSPNEA W/ EXERTION. DESAT TO 85-88% GETTING UP TO BSC. RECOVERY LESS THEN 5 MINUTES. LS COURSE IN BASES. ENCOURAGE LAYING ON SIDE AND PRONE. APPETITE IS IMPROVING. BS HIGH 300'S. HD FOR CKD STAGE 3. VS WNL, AFEBRILE. COOPERATIVE WITH CARE, MILD FORGETFULNESS BUT USES CALL LIGHT APPROPRIATLY. CALL LIGHT IN REACH.
[2021-06-13 05:57] LABS: Albumin, Blood 2.4 g/dL (3.4-5.0); Anion Gap 10 mmol/L (6-16); Blood Urea Nitrogen 87 mg/dL (8-24); Bun/Creatinine Ratio 15.4 (12.0-20.0); CO2, Blood 26 mmol/L (21-32); Calcium, Blood 6.8 mg/dL (8.5-10.1); Chloride, Blood 99 mmol/L (98-108); Creatinine, Blood 5.66 mg/dL (0.60-1.20); Glomerular Filtration Rate 10 (60-); Glucose, Blood 234 mg/dL (70-99); Phosphorus, Blood 5.4 mg/dL (2.5-4.9); Potassium, Blood 3.9 mmol/L (3.5-5.5); Sodium, Blood 135 mmol/L (136-145)
--- NOTE | 2021-06-13 09:26 | NUR ---
PT AWAKE, ALERT WAITING FOR BREAKFAST. DIALYSIS CATH DISCONNECTED VIA ASEPTIC TECHNIQUE, STERILE CAP PLACE. MACHINE STRIPPED AND CLEANED.DR ABDUL APPRISED. SAVANAH
--- NOTE | 2021-06-13 18:03 | NUR ---
Alert and oriented x2 with some confusion and forgetful. One person assist with ADls. worked with PT/OT , DESAT to 70S and oxygen return to greater 90% on 40 L airvo. Insulin Humuilin R SS coverage was given , no adverse effects noted. vital signs are stable. Continue to monitor.
--- NOTE | 2021-06-13 19:10 | NUR ---
TO ROOM 350 FOR EVENING PD TX. PT SITTING UP IN BED, PLEASANT AND COOPERATIVE. PD INITIATED PER MD ORDERS. PD SITE WNL. TOLERATED WELL. SAVANAH
--- NOTE | 2021-06-14 04:22 | NUR ---
SHIFT SUMMARY: ON HD ALL NIGHT, TOLERATING IT WELL. CONTINUES TO DESAT WHEN HE GETS UP DOWN TO LOW 80'S. STILL DOING WELL WITH RECOVERY TIME. WHILE HE IS ASLEEP HE SATS 100%. WHEN UP AWAKE HE SATS AROUND 94%. ENCOURAGED BUILDING HIS ENDURANCE BY SITTING UP FOR LONGER PERIODS OF TIME. AIRVO IS ON 40L 50%. LS IMPROVING STILL COURSE IN BASES BUT BREAKING UP. COUGH IS NON-PRODUCTIVE AT THIS TIME. CALL LIGHT IN REACH.
[2021-06-14 05:14] LABS: Hematocrit 27.1 % (37.0-53.0); Hemoglobin 9.2 g/dL (13.5-17.5)
[2021-06-14 05:44] LABS: Albumin, Blood 2.5 g/dL (3.4-5.0); Anion Gap 12 mmol/L (6-16); Blood Urea Nitrogen 88 mg/dL (8-24); Bun/Creatinine Ratio 15.7 (12.0-20.0); CO2, Blood 25 mmol/L (21-32); Calcium, Blood 6.7 mg/dL (8.5-10.1); Chloride, Blood 98 mmol/L (98-108); Creatinine, Blood 5.59 mg/dL (0.60-1.20); Glomerular Filtration Rate 10 (60-); Glucose, Blood 352 mg/dL (70-99); Magnesium, Blood 1.8 mg/dL (1.6-2.4); Phosphorus, Blood 4.5 mg/dL (2.5-4.9); Potassium, Blood 4.1 mmol/L (3.5-5.5); Sodium, Blood 135 mmol/L (136-145)
--- NOTE | 2021-06-14 10:06 | NUR ---
TO ROOM 350 FOR PD DISCONTINUE. PT SITTING UP IN BED. PLEASANTLY CONFUSED BUT COOPERATIVE. TOTAL UF 453ML. INITIAL DRAIN 180ML. TX DC'D UNDER ASEPTIC TECHNIQUE. PT TOLERATED WELL. SITE CLEAR. SAVANAH
--- NOTE | 2021-06-14 18:08 | NUR ---
TO ROOM 350 FOR EVENING PD TX. PT SITTING UP WATCHING TV, PLEASANT AND COOPERATIVE. IS CONFUSED BUT COOPERATIVE. PD TX SET UP PER MD ORDERS. TX INITIATED PER PROTOCOL. PT TOLERATED WELL. SAVANAH
--- NOTE | 2021-06-14 18:26 | NUR ---
Alert and oriented x2 with some confusion and forgetfulness. Denies any pain. one person assist with ADLs. Worked with PT AND DESAT TO 80% ON 40% airvo , quickly return to 98-93%. No SOB noted. Insulin coverage was given , no adverse effects noted. HCT 27.1 , Aranesp 40 mcg given , no adverse effects noted. vital signs are stable. Continue to monitor.
--- NOTE | 2021-06-14 20:45 | NUR ---
ASSUMED CARE. KB IS DOING WELL. LUNG SOUNDS ARE CLEAR TODAY, HE IS ON 40L 50% O2 RUNNING 98-100%. COUGH IS MORE PRODUCTIVE WITH SMALL AMOUNTS OF MUCUS. NO PAIN. DISCUSSED TRIAL OF HR WITH HUMITITY. HE VERBALIZED FEAR OF COMING OFF THE O2. VERIFIED HIS FEAR AND ENCOURAGE PROGRESS BY GIVING HOPE OF GETTING BACK TO THE THINGS HE LOVES TO DO. WILL MONITOR THROUGH OUT THE NIGHT. INFORMED HIM TO CALL IF HE FEELS HE IS NOT GETTING ENOUGH AIR. CALL LIGHT IN REACH.
[2021-06-15 04:53] LABS: Hematocrit 28.4 % (37.0-53.0); Hemoglobin 9.5 g/dL (13.5-17.5)
--- NOTE | 2021-06-15 04:59 | NUR ---
SHIFT SUMMARY: IMPROVEMENT IN O2 STATUS. AIRVO STOPPED AND PATIENT WAS PLACED ON HF AT10 LITERS TOLERATING IT WELL WITH SATS 98-100% RESTING. DESATED WHEN GETTING UP TO BSC LOWEST WAS 75% HAD TO INCREASE TO 13L DURING RECOVERY STATE WHICH LASTED 6 MINUTES. DECONDITIONED, AND IS CONSISTENT WITH SHALLOW BREATHING, ENCOURAGED DEEP BREATHING EXERCISES, PT/OT, AND BREATHING THROUGH NOSE WHEN EXERTING. WAS SLIGHTLY CONFUSED THIS AM DURING TIME OF RECOVERY JUST ON WHERE HE WAS AT. FELL BACK TO SLEEP AND NOW HOLDING 99% ON 13L HIGH FLOW. HAS HAD SEVERAL DROPS IN HEART RATE TO 39 BPM WHILE SLEEPING BUT HAS NEVER SUSTAINED SO FAR. WILL CONTINUE TO MONITOR. CALL LIGHT IN REACH.
[2021-06-15 05:16] LABS: Albumin, Blood 2.7 g/dL (3.4-5.0); Anion Gap 9 mmol/L (6-16); Blood Urea Nitrogen 91 mg/dL (8-24); Bun/Creatinine Ratio 15.4 (12.0-20.0); CO2, Blood 27 mmol/L (21-32); Calcium, Blood 7.1 mg/dL (8.5-10.1); Chloride, Blood 99 mmol/L (98-108); Creatinine, Blood 5.91 mg/dL (0.60-1.20); Glomerular Filtration Rate 10 (60-); Glucose, Blood 293 mg/dL (70-99); Potassium, Blood 4.4 mmol/L (3.5-5.5); Sodium, Blood 135 mmol/L (136-145)
--- NOTE | 2021-06-15 15:52 | NUR ---
PT AWAKE / ALERT / IN NO DISCONFORT THIS AM WHEN ENTERING ROOM. OVERNIGHT CCPD COMPLETE. PT DISCONNEDTED AND CAPPED. CYCLER STRIPPED AND CLEANED. DR ABDUL CONSULTED VIA PHONE.
--- NOTE | 2021-06-15 16:27 | NUR ---
PT WATCHING TV IN BED THIS EVENING. CYCLER STRUNG, PRIMED AND PROGRAMMED PER DR ABDUL'S RX. WHEN PRIME COMPLETE, PT CONNECTED AND THERAPY STARTED. EXIT SITE CARE DONE. NEW STERILE DRESSING APPLIED WITH STRAIN RELIEFS. MED FLOOR STAFF AWARE OF OVERNIGHT THERAPY IN PROGRESS.
--- NOTE | 2021-06-15 19:24 | NUR ---
Alert and oriented x2 , continue on highflow oxygen at 10 L with sp02 at 97% , pt desat during activity and was put on 13 L highflow and quickly returned to 98% . Denies any pain , SOB AND chest pain. one person assist with ADls. Insulin coverage was given ,no adverse effects noted. Continue to monitor.
--- NOTE | 2021-06-16 04:10 | NUR ---
SHIFT SUMMARY PT AAOX3. ON PERITONEAL DIALYSIS. ON HIGH FLOW 10L AND CONTINOUS SAT MONITORING. SATS HAS BEEN 96-100. PT DID DESAT TO 79 ONCE THROUGH THE NIGHT WHEN AMBULATING TO BATHROOM. PT RECOVERED FAST AFTER INCREASE TO 13L. PT BACK DOWN TO 10L. ABLE TO MAKE NEEDS KNOWN. CALL LIGHT IN REACH. NO OTHER SIGNIFICANT CHANGES DURING THIS SHIFT.
[2021-06-16 05:22] LABS: Hematocrit 28.2 % (37.0-53.0); Hemoglobin 9.3 g/dL (13.5-17.5)
[2021-06-16 05:43] LABS: Albumin, Blood 2.4 g/dL (3.4-5.0); Anion Gap 12 mmol/L (6-16); Blood Urea Nitrogen 89 mg/dL (8-24); Bun/Creatinine Ratio 15.1 (12.0-20.0); CO2, Blood 25 mmol/L (21-32); Calcium, Blood 7.2 mg/dL (8.5-10.1); Chloride, Blood 100 mmol/L (98-108); Glomerular Filtration Rate 10 (60-); Glucose, Blood 248 mg/dL (70-99); Magnesium, Blood 1.7 mg/dL (1.6-2.4); Potassium, Blood 4.1 mmol/L (3.5-5.5); Sodium, Blood 137 mmol/L (136-145)
--- NOTE | 2021-06-16 06:22 | NUR ---
TITRATED PT 02 FROM 10L TO 8L. PTS RESTING SATTING 99%-100%.
--- NOTE | 2021-06-16 08:43 | NUR ---
DIALYSIS-PD PT SITTING UP EATING BREAKFAST. LOOKS LIKE HIS APPETITE HAS INCREASED. APPEARED IN GOOD SPIRITS. HE KEPT MAKING JOKES. HE TOLD ME HE KNEW KARATE. VERY TALKATIVE. DC'ED TX PER PROTOCAL. UF 929 ML. ID [id number] ML. USED A 2.5% DEXTROSE AND 4.25% DEXTROSE LAST NIGHT. SITE CLEAR. FLUID CLEAR.
--- NOTE | 2021-06-16 16:43 | NUR ---
SHIFT SUMMARY PT TITRATED DOWN TO 5L O2 THIS SHIFT WHILE AT REST. PT CONTINUES TO DESAT WITH EXERTION AND REQUIRES UP TO 10L O2 FOR THIS. PT INTERESTED IN IMPORVING HIS MOBILITY. PT ENCOURAGED TO DO LEG RAISES AND SITTING MARCHES WHILE IN BED. PT AGREEABLE TO WORKING WITH OT TODAY. NO OTHER ACUTE CHANGES IN ASSESSMENT AT THIS TIME. VS REVIEWED. PT RESTING IN BED WITH CALL LIGHT IN REACH. DENIES OTHER NEEDS AT THIS TIME.
--- NOTE | 2021-06-16 19:37 | NUR ---
DIALYSIS-PD PT IN VERY GOOD MOOD. TALKED ABOUT SHAVING HEAD FOR FOOTBALL IN HS. SET UP MACHINE AND THEN CONNECTED PT TO THE TX. TOOK AWHILE TO FOR MACHINE TO HEAT SOLUTION. 10 HR 2250 DWELL VOLUME 200 LAST FILL. 5 EXCHANGES. 1- 6 L 1.5% AND 1 6 L 4.25%. SITE CLEAR/REDRESSED.
--- NOTE | 2021-06-17 04:51 | NUR ---
SHIFT SUMMARY FULL CODE PT ADMITTED FOR COVID 19+. NO LONGER REQUIRES ISOLATION ON HIGHFLOW AT 3L. MAY REQUIRE 6-10L DURING EXERTION. PT DESATS WHEN AMBULATING TO BATHROOM.NO SIGNIFICANT CHANGES DURING THIS SHIFT. SATS 99%. VS STABLE. AAOX3.
[2021-06-17 05:22] LABS: Hematocrit 28.8 % (37.0-53.0); Hemoglobin 9.4 g/dL (13.5-17.5)
[2021-06-17 05:39] LABS: Albumin, Blood 2.4 g/dL (3.4-5.0); Anion Gap 10 mmol/L (6-16); Blood Urea Nitrogen 90 mg/dL (8-24); Bun/Creatinine Ratio 14.9 (12.0-20.0); CO2, Blood 27 mmol/L (21-32); Calcium, Blood 7.2 mg/dL (8.5-10.1); Chloride, Blood 100 mmol/L (98-108); Creatinine, Blood 6.04 mg/dL (0.60-1.20); Glomerular Filtration Rate 9 (60-); Glucose, Blood 268 mg/dL (70-99); Magnesium, Blood 1.8 mg/dL (1.6-2.4); Phosphorus, Blood 4.4 mg/dL (2.5-4.9); Potassium, Blood 3.7 mmol/L (3.5-5.5); Sodium, Blood 137 mmol/L (136-145)
--- NOTE | 2021-06-17 06:55 | NUR ---
RESTING QUIETLY / WAKENS EASILY / NO DISCOMFORT REPORTED. OVERNIGHT CCPD COMPLETE. PT DISCONNECTED AND CAPPED. CYCLER STRIPPED AND CLEANED. DR ABDUL CONSULTED VIA PHONE.
--- NOTE | 2021-06-17 13:32 | NUR ---
PATIENT IS ALERT AND ORIENTED X 3. DENIES PAIN. VS WNL. HE IS NOT IN ACUTE DISTRESS. HE IS VERY PLEASANT AND CALM. HE APPEARS TO BE RESTING COMFORTABLY IN BED. OOB WITH STANDBY ASSIST. LUNGS CLEAR AND REG HR RATE AND RHYTHM. HE IS ON 3L NC WITH 96% O2 SAT. APPEARS TO BE IN STABLE CONDITION AT THIS TIME. WILL CONTINUE TO MONITOR.
[2021-06-17] MEDS ORDERED: ELIQUIS5 M2 PO (14:04)
[2021-06-17] MEDS ORDERED: DEXA2 PO (14:05)
[2021-06-17] MEDS ORDERED: VISBIOME 112.51 EACH PO (14:08)
[2021-06-17] MEDS ORDERED: POTCHL20ER PO (14:08)
--- NOTE | 2021-06-17 17:36 | NUR ---
CYCLER PREVIOUSLY SET UP FOR [facility]'S CCPD IN ORDER TO ALLOW SOLUTIONS TIME TO WARM. WHEN RETURNED TO ROOM TO COMMENCE OVERNIGHT CCPD PATIENT HAS BEEN DISCHARGED HOME.
== END 2021-06-17 16:46 | disposition home or self-care (01) | DRG 177 ==
LOC: ER 14:16 → MEDS 17:12 → ERHOLD 17:12 → MEDS 18:56
PROVIDERS: Emergency Medicine; Family Medicine; Internal Medicine; Internal Medicine Nephrology; ADMIT Internal Medicine
PROC: 8E0ZXY6 Isolation (ICD-10-PCS; 2021-05-23)
PROC: 3E0333Z Introduction of Anti-inflammatory into Peripheral Vein, Percutaneous Approach (ICD-10-PCS; 2021-05-23)
PROC: XW033E5 Introduction of Remdesivir Anti-infective into Peripheral Vein, Percutaneous Approach, New Technology Group 5 (ICD-10-PCS; 2021-05-23)
PROC: 5A1D70Z Performance of Urinary Filtration, Intermittent, Less than 6 Hours Per Day (ICD-10-PCS; principal; 2021-05-26)
DX: U07.1 COVID-19 (principal); J12.82 Pneumonia due to coronavirus disease 2019; J96.01 Acute respiratory failure with hypoxia; N18.6 End stage renal disease; I26.99 Other pulmonary embolism without acute cor pulmonale; I12.0 Hypertensive chronic kidney disease with stage 5 chronic kidney disease or end stage renal disease; N25.81 Secondary hyperparathyroidism of renal origin; E87.1 Hypo-osmolality and hyponatremia; E11.65 Type 2 diabetes mellitus with hyperglycemia; E87.6 Hypokalemia; F03.90 Unspecified dementia, unspecified severity, without behavioral disturbance, psychotic disturbance, mood disturbance, and anxiety; E78.5 Hyperlipidemia, unspecified; G47.33 Obstructive sleep apnea (adult) (pediatric); D63.1 Anemia in chronic kidney disease; I25.10 Atherosclerotic heart disease of native coronary artery without angina pectoris; E66.9 Obesity, unspecified; D72.829 Elevated white blood cell count, unspecified; E83.39 Other disorders of phosphorus metabolism; E88.09 Other disorders of plasma-protein metabolism, not elsewhere classified; T38.0X5A Adverse effect of glucocorticoids and synthetic analogues, initial encounter; R19.7 Diarrhea, unspecified; E11.22 Type 2 diabetes mellitus with diabetic chronic kidney disease; Z91.048 Other nonmedicinal substance allergy status; Z99.2 Dependence on renal dialysis; Z95.0 Presence of cardiac pacemaker; Z68.29 Body mass index [BMI] 29.0-29.9, adult; Z86.718 Personal history of other venous thrombosis and embolism; Z86.711 Personal history of pulmonary embolism; Z98.890 Other specified postprocedural states; Z95.5 Presence of coronary angioplasty implant and graft; Z79.82 Long term (current) use of aspirin; Z79.4 Long term (current) use of insulin; Z79.899 Other long term (current) drug therapy; Z86.73 Personal history of transient ischemic attack (TIA), and cerebral infarction without residual deficits
CPT/HCPCS: 36415; 71045; 71260; 80053; 80069; 82947; 83036; 83605; 83735; 83880; 84100; 84132; 84145; 85014; 85018; 85025; 85027; 85379; 86140; 86141; 87040; 92610; 93005; 93010; 94761; 94762; 97110; 97116-CQ; 97161; 97166; 97530; 97530-CQ; 97535; 99285-25; A9270; J0456; J0696; J0881; J1644; J1815; J3480; J7030; J7050; Q9967

== ENCOUNTER 2022-01-09 01:52 | Inpatient (IN) | payer BC, MEDICARE ==
[~2022-01-09] VITALS: Ht 170.2 cm; Wt 95.4 kg
[~2022-01-09 01:52] MED LIST changes: +BASAGLAR K100 UNIT/3 SC; +DEXA2 PO; +ELIQUIS5 M2 PO; +EXELON1 EAC1 TD; +FENOFIBRATE48 MG PO; +FURO80 PO; +GENTAMICIN SULFATE TOP; +MEMANTINE HCL E28 MG PO; +MIDODRINE HCL10 M4 PO; +POTCHL20ER PO; +VISBIOME 112.51 EACH PO
[2022-01-09 03:01] LABS: BASOPHILS ABSOLUTE AUTO 0.06 K/mm3 (0.00-0.23); BASOPHILS PERCENT AUTO 0 % (0-2); EOSINOPHILS ABSOLUTE AUTO 0.21 K/mm3 (0.00-0.68); EOSINOPHILS PERCENT AUTO 2 % (0-6); Hematocrit 32.5 % (37.0-53.0); Hemoglobin 10.6 g/dL (13.5-17.5); IMMATURE GRAN ABSOLUTE AUTO 0.16 K/mm3 (0.00-0.10); IMMATURE GRAN PERCENT AUTO 1 % (0-1); LYMPHOCYTES ABSOLUTE AUTO 1.13 K/mm3 (0.84-5.20); LYMPHOCYTES PERCENT AUTO 9 % (21-46); MONOCYTES ABSOLUTE AUTO 0.83 K/mm3 (0.16-1.47); MONOCYTES PERCENT AUTO 6 % (4-13); Mean Corpuscular HGB 32.6 pg (26.0-34.0); Mean Corpuscular HGB Conc 32.6 g/dL (31.5-36.5); Mean Corpuscular Volume 100 fL (80-100); Mean Platelet Volume 10.5 fL (9.1-12.4); NEUTROPHILS ABSOLUTE AUTO 10.97 K/mm3 (1.96-9.15); NEUTROPHILS PERCENT AUTO 82 % (41-73); Platelet Count 381 K/mm3 (150-400); RDW Coefficient Variation 14.4 % (11.7-14.2); RDW Standard Deviation 53.1 fL (35.1-46.3); Red Blood Cell Count 3.25 M/mm3 (4.30-5.90); White Blood Cell Count 13.36 K/mm3 (4.00-11.30)
[2022-01-09] MEDS ORDERED: TRADJENTA5 MG PO (03:05)
[2022-01-09] MEDS ORDERED: ALBU8HFA2 INH (03:11)
[2022-01-09 04:05] LABS: Influenza A, PCR NEGATIVE (NEGATIVE); Influenza B, PCR NEGATIVE (NEGATIVE); Resp Syncytial Virus, PCR NEGATIVE (NEGATIVE); SARS-Cov-2 (COVID-19) PCR, MMC NEGATIVE (NEGATIVE)
[2022-01-09 04:13] LABS: Potassium, Blood 5.8 mmol/L (3.5-5.5)
[2022-01-09 04:14] LABS: Albumin, Blood 3.3 g/dL (3.4-5.0); Albumin/Globulin Ratio 0.8 (0.8-1.8); Bilirubin, Total 0.5 mg/dL (0.1-1.0); Bun/Creatinine Ratio 8.3 (12.0-20.0); Calcium, Blood 8.4 mg/dL (8.5-10.1); Globulin, Blood 4.3 g/dL (2.2-4.0); Magnesium, Blood 2.2 mg/dL (1.6-2.4); Total Protein, Blood 7.6 g/dL (6.4-8.2)
[2022-01-09 04:16] LABS: Creatinine, Blood 8.54 mg/dL (0.60-1.20)
--- NOTE | 2022-01-09 18:04 | NUR ---
PT SUMMARY: PT ADMITTED BEFORE CHANGE OF SHIFT THIS AM, PT CAME IN FOR ACUTE RESPIRATORY DISTRESS. ALERT AND ORIENTED X2 CAN STATE NAME KNOWS WHERE HE'S AT, MOSTLY FORGETFUL HX DEMENTIA AND ALZHEIMERS. PT WAS ON BIPAP THIS AM WITH 4L O2 BLEED. VITALS HRR VPACED AT 100'S, BP SYSTOLIC 90-115'S, SATS ABOVE 90% ALTERNATING BIPAP AND 4L OF O2 VIA NASAL CANNULA, HEMODIALYSIS DONE TODAY 1600MLS OUTPUT, FISTULA WITH POSITIVE BRUIT AND THRILL ON LEFT UPPER ARM. PERITONEAL DIALYSIS CATHETER WITH DRESSING INTACT ON LOWER LEFT ABD. PT STATED BREATHING IS MUCH BETTER AFTER DIALYSIS, LUNGS CLEAR ON UPPER CRACKLES ON BASES, PT DENIES ANY CHEST PAIN/PRESSURE TROPONIN TRENDS GOING UP, ANGIOGRAM DONE TODAY HAS RIGHT RADIAL AND RIGHT GROIN ACCESS SITE WITH CLOSURE DEVICE IN PLACE, PER REPORT PT HAS MASSIVE OCCLUSION ON CIRCUMFLEX AWAITING FOR CARDILOGIST TO DECIDE ON THE PLAN AND DAUGHTER AWARE OF THE PLAN. DIET RESUMED, PT WAS ABLE TO TOLERATE, VOIDED 200MLS OF URINE FOR THE SHIFT. PT ANTICIPATING BOWEL MOVEMENT SOON GROIN SITE IS FULLY RECOVERED. NO OTHER ISSUES REPORTED, PT ABLE TO MAKE NEEDS KNOWN, CALL LIGHTS IN REACH WILL REPORT TO [facility] SHIFT
[2022-01-10 04:16] LABS: Hematocrit 30.5 % (37.0-53.0); Hemoglobin 9.9 g/dL (13.5-17.5)
[2022-01-10 04:42] LABS: Albumin, Blood 3.2 g/dL (3.4-5.0); Anion Gap 9 mmol/L (6-16); Blood Urea Nitrogen 56 mg/dL (8-24); Bun/Creatinine Ratio 7.6 (12.0-20.0); CO2, Blood 29 mmol/L (21-32); Calcium, Blood 8.2 mg/dL (8.5-10.1); Chloride, Blood 101 mmol/L (98-108); Creatinine, Blood 7.33 mg/dL (0.60-1.20); Glomerular Filtration Rate 7 (60-); Glucose, Blood 141 mg/dL (70-99); Magnesium, Blood 2.2 mg/dL (1.6-2.4); Phosphorus, Blood 6.1 mg/dL (2.5-4.9); Potassium, Blood 4.4 mmol/L (3.5-5.5); Sodium, Blood 139 mmol/L (136-145)
--- NOTE | 2022-01-10 05:21 | NUR ---
SHIFT SUMMARY PT ALERT AND ORIENTED X2; PT IS CONFUSED ABOUT WHERE HE IS AND WHY HE IS IN THE HOSPITAL. PT CONTINUES TO ASK WHERE HE IS AND WHY HE IS IN THE HOSPITAL. PT TRIED TO GET OUT OF BED AND PULLED OFF TELE WIRES AND NASAL CANNULA. PT STATED HE WAS "UNSURE OF WHERE HE WAS OR WHY HE HAD THE WIRES ON". STUDENT NURSE EXPLAINED TO HIM WHY HE HAD THE WIRES IN PLACE AND WHERE HE WAS. TELE WIRES AND NASAL CANNULA WERE PLACED BACK ON THE PT AND REMAINED THROUGHOUT THE SHIFT. BED ALARM WAS SET AND USE OF CALL LIGHT EXPLAINED TO PT. VITALS SIGNS REMAINED CONSISTENT THROUGHOUT SHIFT; SYSTOLIC BLOOD PRESSURE OF 90'S - 110'S, RESPIRATIONS 20 - 22, AND 02 SATS > 94% ON 3 L VIA NC. PT HAS PACEMAKER' PACED RHYTHM AND RATE IN 100'S. PT HAS LABORED BREATHING. PT USED BEDSIDE COMMODE AND NEEDED 2 PERSON SBA. PT HAD A SMALL BM THAT WAS BROWN IN COLOR, SOFT AND FORMED. PT DID NOT VOID DURING SHIFT. 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 PT HAS PERITONEAL DIALYSIS CATHETER IN LOWER LEFT ABDOMEN; DRESSING IS INTACT. PT HAS IV IN RIGHT FORARM THAT IS PATENT AND FLUSHES WELL. PT HAS RIGHT RADIAL AND RIGHT GROIN ACCESS SITE FROM ANGIOGRAM; DRESSING INTACT, NO BLEEDING OR SWELLING NOTED. WILL CONTINUE TO MONITOR PT. CALL LIGHT IS WITHIN REACH AND BED IS IN LOWEST POSITION. PT USES CALL LIGHT APPROPRIATELY BUT OCCASSIONALLY FORGETS TO USE AND CALL OUT FOR THE NURSE.
--- NOTE | 2022-01-10 11:23 | NUR ---
AM NOTE: PT REMAINS ON 3L OF O2 VIA NASAL CANNULA VITALS HRR REMAINED VPACED AT 110'S, BP SYSTOLIC 110'S, SATS ABOVE 94%, AFEBRILE. PT SCHEDULED ON DIALYSIS TODAY WHEN PT GOT UP IN THE WHEELCHAIR PT STARTED C/O SOB WITH EXERTION SATS REMAINED ABOVE 90% PT WAS ABLE TO SETTLE AND CATCH HIS BREATH THEN UPON ARRIVING IN THE DIALYSIS ROOM UPON TRANSFERRING TO DIALYSIS BED PT GOT REALLY SHORT OF BREATH DIAPHORETIC AND CLAMMY PT DENIES CHEST PAIN/PRESSURE SATS REMAINED ABOVE 94% ON 4L OF O2, NO CHANGES ON TELE BP SYSTOLIC 160'S, TOOK PT ABOUT 15 MINS TO SETTLE AND RECOVER DR CERNA MADE AWARE, NO PLANS YET PER CARDIAC STATUS. PT STILL IN DIALYSIS ROOM AT THIS TIME, WILL MONITOR UNTIL END OF SHIFT
--- NOTE | 2022-01-10 17:41 | NUR ---
PT SUMMARY: PT TIAGO TRANSFERRED TO [facility] FOR PCI AND PACER REPLACEMENT, REPORT GIVEN TO SERINA PLUMMER. NO CHEST PAIN BEFORE PT LEFT STILL HAS SOB WORSENS WITH EXERTION, VITALS HRR 100'S VPACED, BP [id number], SATS ABOVE 93% ON 3L, AFEBRILE. PANTERA MADE AWARE OF THE TRANSFER ARRIVED IN THE ROOM BEFORE PT LEFT, FAMILY TO FOLLOW AMBULANCE TO GO [place] WITH THE PT. PT STATED HE FELT BETTER AFTER DIALYSIS, HAD 2000MLS OUTPUT TODAY. COBRA PACKET SENT WITH THE PT, 20G IV ON RAC LEFT INTACT FLUSHES WELL. ALL BELONGINGS SENT WITH THE FAMILY. PT LEFT FACILITY AT 1730 VIA [place] THROUGH AMBULANCE TRANSPORT.
[2022-01-11 00:07] LABS: HBSAG SCREEN Negative (Negative)
== END 2022-01-10 17:33 | disposition short-term general hospital (02) | DRG 280 ==
LOC: ER 01:52 → PCU 05:47
PROVIDERS: Internal Medicine Nephrology; Student in an Organized Health Care Education/Training Program; ADMIT Internal Medicine
PROC: 4A023N6 Measurement of Cardiac Sampling and Pressure, Right Heart, Percutaneous Approach (ICD-10-PCS; principal; 2022-01-09)
PROC: B2111ZZ Fluoroscopy of Multiple Coronary Arteries using Low Osmolar Contrast (ICD-10-PCS; 2022-01-09)
DX: I13.2 Hypertensive heart and chronic kidney disease with heart failure and with stage 5 chronic kidney disease, or end stage renal disease (principal); N18.6 End stage renal disease; I21.A1 Myocardial infarction type 2; J96.21 Acute and chronic respiratory failure with hypoxia; J18.9 Pneumonia, unspecified organism; I50.21 Acute systolic (congestive) heart failure; N25.81 Secondary hyperparathyroidism of renal origin; E11.22 Type 2 diabetes mellitus with diabetic chronic kidney disease; E78.5 Hyperlipidemia, unspecified; G30.9 Alzheimer's disease, unspecified; E66.01 Morbid (severe) obesity due to excess calories; G47.33 Obstructive sleep apnea (adult) (pediatric); I49.5 Sick sinus syndrome; I25.10 Atherosclerotic heart disease of native coronary artery without angina pectoris; F02.80 Dementia in other diseases classified elsewhere, unspecified severity, without behavioral disturbance, psychotic disturbance, mood disturbance, and anxiety; M54.9 Dorsalgia, unspecified; G89.29 Other chronic pain; E87.5 Hyperkalemia; F03.90 Unspecified dementia, unspecified severity, without behavioral disturbance, psychotic disturbance, mood disturbance, and anxiety; Z95.5 Presence of coronary angioplasty implant and graft; Z86.718 Personal history of other venous thrombosis and embolism; Z86.711 Personal history of pulmonary embolism; Z95.0 Presence of cardiac pacemaker; Z98.890 Other specified postprocedural states; Z88.8 Allergy status to other drugs, medicaments and biological substances; Z79.899 Other long term (current) drug therapy; Z91.030 Bee allergy status; Z79.82 Long term (current) use of aspirin; Z79.4 Long term (current) use of insulin; Z86.16 Personal history of COVID-19
CPT/HCPCS: 0241U; 36415; 71045; 71260; 76937; 80053; 80069; 82947; 83735; 83880; 84484; 85014; 85018; 85025; 85379; 87340; 93005; 93010; 93458; 94640; 94660; 94664; 94762; 96365; 96375; 99285-25; A9270; C1760; C1769; C1887; C1894; C8929; J0456; J0696; J1644; J1815; J1940; J2250; J3010; J7030; J7040; J7050; Q9957; Q9967